=== PATIENT | male | born 1975 | race Caucasian/White ===

== ENCOUNTER 2018-10-31 02:37 | Emergency (ER) | payer SELFPAY ==
[2018-10-31 02:45] VITALS: BP 131/95; PULSE 98; RESP 22; TEMP 36.8; O2SAT 100; BMI 22.1
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
[2018-10-31 04:01] VITALS: BP 108/74; PULSE 95; RESP 19; O2SAT 98
== END 2018-10-31 04:03 | disposition home or self-care (01) ==
PROVIDERS: Emergency Provider Emergency Medicine
DX: M25.521 Pain in right elbow (principal); M54.2 Cervicalgia; R07.81 Pleurodynia; M25.551 Pain in right hip; Y30.XXXA Falling, jumping or pushed from a high place, undetermined intent, initial encounter; Y09 Assault by unspecified means
CPT/HCPCS: 70450; 72125; 73080; 99283; 99284

== ENCOUNTER 2021-06-21 10:49 | Emergency (ER) | payer OTHER, MEDICAID, SELFPAY ==
[2021-06-21 10:51] VITALS: BP 142/90; PULSE 103; RESP 18; TEMP 38.8; O2SAT 99; BMI 25.8
--- NOTE | 2021-06-21 11:09 | DI.RAD.S_ITS ---
1PROCEDURE: XR CHEST 1V INDICATIONS: chest pain, rash, +covid TECHNIQUE: One view of the chest was acquired. COMPARISON: [facility], , CHEST 2 VIEW, 05/22/2009, 15:57. FINDINGS: Surgical changes and devices: None. Lungs and pleura: Lungs are clear. No pleural effusions or pneumothorax. Mediastinum: Mediastinal contours appear normal. Heart size is normal. Bones and chest wall: No suspicious bony lesions. Overlying soft tissues appear unremarkable. IMPRESSION: Unremarkable portable chest, without infiltrates. Dictated by: Braulio Cuellar M.D. on 06/21/2021 at 10:34 Approved by: Braulio Cuellar M.D. on 06/21/2021 at 10:35
[2021-06-21] MEDS: ACETAMINOPHEN 325 MG TABLET 975 MG PO (11:15)
[2021-06-21] MEDS: IBUPROFEN 400 MG TABLET 800 MG PO (11:15)
[2021-06-21] MEDS: hydrOXYzine pamoate 25 MG CAPSULE PO (12:50)
[2021-06-21 12:52] LABS: Add Manual Diff / Slide Review NO; Basophils Absolute Auto 100 /uL (0-100); Basophils Percent Auto 1.2 % (0-2); Eosinophils Absolute Auto 100 /uL (0-450); Eosinophils Percent Auto 1.8 % (2-4); Hematocrit 52.3 % (41-53); Hemoglobin 18.1 g/dL (13.5-17.5); Lymphocytes Absolute Auto 1700 /uL (1100-4500); Lymphocytes Percent Auto 26.5 % (25-40); Mean Corpuscular HGB Conc 34.6 % (30-36); Mean Corpuscular Hemoglobin 32.7 PG (26-34); Mean Corpuscular Volume 94.4 fL (80-100); Monocytes Absolute Auto 600 /uL (0-900); Monocytes Percent Auto 8.6 % (3-14); Neutrophils Absolute Auto 4000 /uL (1500-7000); Neutrophils Percent Auto 61.9 % (50-75); Platelet Count 193 X10^3/uL (150-400); Red Blood Cell Count 5.54 X10^6/uL (4.5-5.9); Red Cell Distribution Width 13.2 % (11.6-14.8); White Blood Cell Count 6.4 X10^3/uL (4.5-11.0)
--- NOTE | 2021-06-21 12:59 | ED_ITS ---
HPI - URI/Sore Throat <CLAU Gomez - Last Filed: 06/21/21 15:56> General Chief Complaint: Upper Respiratory Symptoms Stated Complaint: Covid, rash, chest pain Time Seen by Provider: 06/21/21 11:08 History of Present Illness HPI Narrative: 45-year-old male presents to the emergency department complaining of COVID infection x3 weeks, fever, fatigue, and non-pruritic rash on his chest when he has a fever. Patient states that he tested positive for COVID on Wednesday again and has had a fever since then. Patient states that he tested positive over 3 weeks ago and his symptoms improved after week and a half for a few days and then he feels like he got sick again and then tested positive for COVID Wednesday. Patient denies any wheezing, shortness of breath, chest pain or dizziness. Patient endorses fatigue, cough, malaise, denies taking any medications at home, he has a rash on his chest which is non petechial, not raised, is associated with fever, does not have any adverse sensation or and is not bothersome. Patient states that he put a steroid cream on it for a few days and then it became tender and he did not want to do that anymore. Related Data Previous Rx's Medication Instructions Recorded famotidine 20 mg tablet (Pepcid) 20 mg PO DAILY #20 tab 06/21/21 hydroxyzine HCl 25 mg tablet 25 mg PO BID PRN #20 tab 06/21/21 prednisone 20 mg tablet 40 mg PO DAILY 4 Days #8 tab 06/21/21 Allergies Allergy/AdvReac Type Severity Reaction Status Date / Time Penicillins Allergy Verified 10/31/18 03:36 Review of Systems <CLAU Gomez - Last Filed: 06/21/21 15:56> Review of Systems Narrative: General: endorses fever and chills, malaise, and fatigue Head/Neck: denies headache, neck pain, dizziness Eyes: denies visual changes, eye pain Cardio: denies chest pain, palpitations, edema Respiratory: denies dyspnea, endorses cough but is improving GI: denies abdominal pain, nausea, vomiting, or diarrhea : denies dysuria, hematuria, urinary retention, frequency or incontinence MSK: denies joint pain, muscle weakness Skin: Endorses nonpruritic rash on chest, denies itching, skin lesions or other Neuro: denies numbness, tingling Patient History <CLAU Gomez - Last Filed: 06/21/21 15:56> Surgical History No pertinent past surgical history Social History lives independently: Yes Smoking Status: Current every day smoker Smoking Status: Current every day smoker alcohol intake frequency: 0-2 drinks per day Substance Use Type: marijuana Exam <CLAU Gomez - Last Filed: 06/21/21 15:56> Narrative Exam Narrative: Independently reviewed vitals signs and nursing notes. General: Cooperative, comfortable, in no acute distress, well developed and well groomed Head/Neck: Normal visual inspection and supple, atraumatic, no JVD or lymphadenopathy. Normal facial exam Eyes: Pupils equal round and reactive, EOMI, conjunctiva normal, no scleral icterus or injections Nose: External nose normal, nares patent, no rhinorrhea, without purulent drainage Mouth/Throat: uvula midline, moist mucus membranes Cardio: Regular rate and rhythm, no peripheral edema, warm extremities Respiratory: Normal respiratory effort, able to speak in complete sentences without audible wheezing, stridor, or rales. No retractions. GI: Abdomen soft, nontender to palpation x4 quadrants, nondistended, no masses or exquisite tenderness with exam, no flank tenderness MSK: Moves all extremities, neurovascularly intact Skin: Normal capillary refill, no rash Neuro: Normal speech and cognition, normal gait, A&O x3, tone normal, moves all extremities Psych: Mental status is grossly normal, speech is clear, congruent mood, normal affect Initial Vital Signs Initial Vital Signs: Vital Signs Temperature 102 F H 06/21/21 10:51 Pulse Rate 103 H 06/21/21 10:51 Respiratory Rate 18 06/21/21 10:51 Blood Pressure 142/90 H 06/21/21 10:51 Pulse Oximetry 99 06/21/21 10:51 <Armida Ordaz DO - Last Filed: 06/21/21 19:00> Initial Vital Signs Initial Vital Signs: Vital Signs Temperature 102 F H 06/21/21 10:51 Pulse Rate 103 H 06/21/21 10:51 Respiratory Rate 18 06/21/21 10:51 Blood Pressure 142/90 H 06/21/21 10:51 Pulse Oximetry 99 06/21/21 10:51 Course <CLAU Gomez - Last Filed: 06/21/21 15:56> Orders Ordered: ED Orders 06/21/21 11:00 COVID19 -Nasal swab/Pre-Proc Stat 06/21/21 11:09 Chest [XR chest 1V] Stat 06/21/21 12:43 CBC Auto Diff [Complete Blood Count AUTO DIFF] Stat CMP [Comprehensive Metabolic Panel] Stat Troponin & CK Cardiac Panel Stat Discontinued Medications Acetaminophen (Acetaminophen 325 Mg Tablet) 975 mg PO NOW ONE Stop: 06/21/21 11:10 Last Admin: 06/21/21 11:15 Dose: 975 mg Documented by: MELANIA Erythromycin (Erythromycin Ophth 1 Gm Oint) 1 applic EYE-RIGHT NOW ONE Stop: 06/21/21 13:02 Last Admin: 06/21/21 13:14 Dose: Not Given Documented by: TYLER Famotidine (Famotidine 20 Mg Tablet) 20 mg PO NOW ONE Stop: 06/21/21 13:35 Last Admin: 06/21/21 13:42 Dose: 20 mg Documented by: MELANIA Hydroxyzine Pamoate (Hydroxyzine Pamoate 25 Mg Capsule) 25 mg PO NOW ONE Stop: 06/21/21 12:22 Last Admin: 06/21/21 12:50 Dose: 25 mg Documented by: MELANIA Ibuprofen (Ibuprofen 400 Mg Tablet) 800 mg PO NOW ONE Stop: 06/21/21 11:10 Last Admin: 06/21/21 11:15 Dose: 800 mg Documented by: MELANIA Prednisone (Prednisone 20 Mg Tablet) 40 mg PO NOW ONE Stop: 06/21/21 13:34 Last Admin: 06/21/21 13:42 Dose: 40 mg Documented by: MELANIA Vital Signs Vital signs: Vital Signs - 8 hr 06/21/21 13:27 06/21/21 14:22 Pulse Rate 74 74 Respiratory Rate 18 17 Blood Pressure 130/76 128/79 Pulse Oximetry 94 95 <Armida Ordaz DO - Last Filed: 06/21/21 19:00> Orders Ordered: ED Orders 06/21/21 11:00 COVID19 -Nasal swab/Pre-Proc Stat 06/21/21 11:09 Chest [XR chest 1V] Stat 06/21/21 12:43 CBC Auto Diff [Complete Blood Count AUTO DIFF] Stat CMP [Comprehensive Metabolic Panel] Stat Troponin & CK Cardiac Panel Stat Discontinued Medications Acetaminophen (Acetaminophen 325 Mg Tablet) 975 mg PO NOW ONE Stop: 06/21/21 11:10 Last Admin: 06/21/21 11:15 Dose: 975 mg Documented by: MELANIA Erythromycin (Erythromycin Ophth 1 Gm Oint) 1 applic EYE-RIGHT NOW ONE Stop: 06/21/21 13:02 Last Admin: 06/21/21 13:14 Dose: Not Given Documented by: TYLER Famotidine (Famotidine 20 Mg Tablet) 20 mg PO NOW ONE Stop: 06/21/21 13:35 Last Admin: 06/21/21 13:42 Dose: 20 mg Documented by: MELANIA Hydroxyzine Pamoate (Hydroxyzine Pamoate 25 Mg Capsule) 25 mg PO NOW ONE Stop: 06/21/21 12:22 Last Admin: 06/21/21 12:50 Dose: 25 mg Documented by: MELANIA Ibuprofen (Ibuprofen 400 Mg Tablet) 800 mg PO NOW ONE Stop: 06/21/21 11:10 Last Admin: 06/21/21 11:15 Dose: 800 mg Documented by: MELANIA Prednisone (Prednisone 20 Mg Tablet) 40 mg PO NOW ONE Stop: 06/21/21 13:34 Last Admin: 06/21/21 13:42 Dose: 40 mg Documented by: MELANIA Vital Signs Vital signs: Vital Signs - 8 hr 06/21/21 13:27 06/21/21 14:22 Pulse Rate 74 74 Respiratory Rate 18 17 Blood Pressure 130/76 128/79 Pulse Oximetry 94 95 MDM - URI/Sore Throat <CLAU Gomez - Last Filed: 06/21/21 15:56> Lab Data Result diagrams: 06/21/21 12:43 06/21/21 12:43 Labs: Lab Results 06/21/21 06/21/21 06/21/21 Range/Units 11:00 12:43 12:43 WBC 6.4 (4.5-11.0) X10^3/uL RBC 5.54 (4.5-5.9) X10^6/uL Hgb 18.1 H (13.5-17.5) g/dL Hct 52.3 (41-53) % MCV 94.4 (80-100) fL MCH 32.7 (26-34) PG MCHC 34.6 (30-36) % RDW 13.2 (11.6-14.8) % Plt Count 193 (150-400) X10^3/uL Neut % (Auto) 61.9 (50-75) % Lymph % (Auto) 26.5 (25-40) % [place] % (Auto) 8.6 (3-14) % Eos % (Auto) 1.8 L (2-4) % Baso % (Auto) 1.2 (0-2) % Neut # (Auto) 4000 (4054-8516) /uL Lymph # (Auto) 1700 (8359-6174) /uL [place] # (Auto) 600 (0-900) /uL Eos # (Auto) 100 (0-450) /uL Baso # (Auto) 100 (0-100) /uL Sodium 137 (137-145) mmol/L Potassium 4.8 (3.4-5.1) mmol/L Chloride 103 (98-107) mmol/L Carbon Dioxide 31 (22-32) mmol/L BUN 8 L (9-20) mg/dL Creatinine 0.72 (0.66-1.25) mg/dL Estimated GFR > 60.0 (>60) mL/min BUN/Creatinine Ratio 11.1 (6-22) Glucose 94 (70-100) mg/dL Calcium 9.4 (8.4-10.2) mg/dL Total Bilirubin 1.2 (0.2-1.3) mg/dL AST 35 (17-59) IU/L ALT 33 (<50) IU/L Alkaline Phosphatase 60 (38-126) U/L Total Creatine Kinase 89 (55-170) U/L CK-MB (CK-2) TNP CK-MB (CK-2) Rel Index TNP Troponin I < 0.012 (0.01-0.034) ng/mL Total Protein 8.1 (6.3-8.2) g/dL Albumin 4.7 (3.5-5.0) g/dL Globulin 3.4 (1.7-4.1) g/dL Albumin/Globulin Ratio 1.4 (1.0-2.8) SARS-CoV-2 (PCR) Negative (Negative) MDM Narrative Medical decision making narrative: 45-year-old male presents to the emergency department today for upper respiratory symptoms, active COVID infection for the last 3 weeks, fever, malaise, and a rash associated with fever on his chest. Today patient tested negative for COVID after tested positive by days ago. Patient is afebrile currently, chest x-ray without any pulmonary infiltrate or acute cardiopulmonary abnormality. Lab work without any elevation in troponin, patient mildly hemoconcentrated without any leukocytosis, electrolyte abnormalities, or signs of infection. Patient was given 1 L of water and drink this without any nausea or vomiting. His rash on his chest is not petechial, it is not raised, it is nonpruritic, is nonpainful, could be associated with fever. Today patient recei finn ibuprofen, famotidine hydroxyzine, and prednisone for his symptoms. Was instructed to stay hydrated, eat a healthy diet, decrease smoking, and follow-up with his primary care provider. Patient has an upcoming appointment to establish care with a primary care provider in 3 days, he states he will follow- up accordingly and then he will have all of his labs checked as well. Multiple causes of chest pain considered including PA, PE, pneumothorax, pneumonia, aortic dissection, and pleurisy. Patient reports no radiation, no diaphoresis, no provocation with exertion, and no vomiting. Patient is appropriate and amenable to discharge home. Vital signs are stable on repeat examination is unremarkable. Patient has been informed of results. Patient has been given strict return to ER precautions for any new or worsening symptoms. Patient understands to follow up closely with outpatient providers as instructed. Patient understands plan and agrees to discharge home. All questions and co ncerns answered at this time. <Armida Ordaz, DO - Last Filed: 06/21/21 19:00> Lab Data Labs: Lab Results 06/21/21 06/21/21 06/21/21 Range/Units 11:00 12:43 12:43 WBC 6.4 (4.5-11.0) X10^3/uL RBC 5.54 (4.5-5.9) X10^6/uL Hgb 18.1 H (13.5-17.5) g/dL Hct 52.3 (41-53) % MCV 94.4 (80-100) fL MCH 32.7 (26-34) PG MCHC 34.6 (30-36) % RDW 13.2 (11.6-14.8) % Plt Count 193 (150-400) X10^3/uL Neut % (Auto) 61.9 (50-75) % Lymph % (Auto) 26.5 (25-40) % [place] % (Auto) 8.6 (3-14) % Eos % (Auto) 1.8 L (2-4) % Baso % (Auto) 1.2 (0-2) % Neut # (Auto) 4000 (1852-4256) /uL Lymph # (Auto) 1700 (8410-0748) /uL [place] # (Auto) 600 (0-900) /uL Eos # (Auto) 100 (0-450) /uL Baso # (Auto) 100 (0-100) /uL Sodium 137 (137-145) mmol/L Potassium 4.8 (3.4-5.1) mmol/L Chloride 103 (98-107) mmol/L Carbon Dioxide 31 (22-32) mmol/L BUN 8 L (9-20) mg/dL Creatinine 0.72 (0.66-1.25) mg/dL Estimated GFR > 60.0 (>60) mL/min BUN/Creatinine Ratio 11.1 (6-22) Glucose 94 (70-100) mg/dL Calcium 9.4 (8.4-10.2) mg/dL Total Bilirubin 1.2 (0.2-1.3) mg/dL AST 35 (17-59) IU/L ALT 33 (<50) IU/L Alkaline Phosphatase 60 (38-126) U/L Total Creatine Kinase 89 (55-170) U/L CK-MB (CK-2) TNP CK-MB (CK-2) Rel Index TNP Troponin I < 0.012 (0.01-0.034) ng/mL Total Protein 8.1 (6.3-8.2) g/dL Albumin 4.7 (3.5-5.0) g/dL Globulin 3.4 (1.7-4.1) g/dL Albumin/Globulin Ratio 1.4 (1.0-2.8) SARS-CoV-2 (PCR) Negative (Negative) Discharge Plan Departure Patient Disposition: Home Clinical Impression: Rash Upper respiratory infection Qualifiers: URI type: unspecified URI Qualified Code(s): J06.9 - Acute upper respiratory infection, unspecified Fever Qualifiers: Fever type: unspecified Qualified Code(s): R50.9 - Fever, unspecified Instructions: DI for Rash, DI for Fever (Symptom) -- Adult Activity Restrictions/Additional Instructions: *You have been diagnosed with negative COVID test, congratulations, finally! That is a good sign that things are moving in the right direction. COVID can cause a rash like you have today, and fever can cause a rash like you have today so I think they are both related. Treat the fever and the rash will likely go down. Would like to give you a short course of steroids so that you can start to get better soon. Please stay hydrated, drink plenty of water. He appeared slightly dehydrated today on her lab work. Your cardiac workup is all in the clear, does not look like you have any organ dysfunction. Hope you start feeling better soon, please cigar packer and picker her prescriptions at [facility] in [place]. Follow-up with your primary care provider, I will try to send your chart to him. *What to do: *Please continue to take your regular medications as directed. [ x] New medication prescriptions sent to your pharmacy: [ [facility]] [ ] New medication written as a paper prescription [ ] No new medications given *Please follow up with your primary care provider in 2-3 days, call for an appointment. Let them know you were seen in the Emergency Department and that we ask that you be seen in follow up. We will electronically transmit a record of today's note if your PCP is in our system *If you do not have a primary care provider please contact the [facility] Resource line at [phone]. They will ask some questions about your medical history and help get you set up with a doctor in the community. *Return to Emergency Department if you should have any new, worsening or concerning symptoms, such as [fever greater than 101F, chills, worsening pain, persistent vomiting or other bothersome symptoms] Prescriptions: New prednisone 20 mg tablet 40 mg PO DAILY 4 Days Qty: 8 0RF famotidine [Pepcid] 20 mg tablet 20 mg PO DAILY Qty: 20 0RF hydroxyzine HCl 25 mg tablet 25 mg PO BID PRN (Reason: itching) Qty: 20 0RF <Armida Ordaz DO - Last Filed: 06/21/21 19:00> Cosign ED Attending Cosignature Attestation: I was immediately available in the department for consultation. Documentation has been reviewed.
[2021-06-21 13:05] LABS: Alanine Aminotransferase 33 IU/L (<50); Albumin 4.7 g/dL (3.5-5.0); Albumin Globulin Ratio 1.4 (1.0-2.8); Alkaline Phosphatase 60 U/L (38-126); Aspartate Aminotransferase 35 IU/L (17-59); BUN Creatinine Ratio 11.1 (6-22); Bilirubin Total 1.2 mg/dL (0.2-1.3); Blood Urea Nitrogen 8 mg/dL (9-20); Calcium 9.4 mg/dL (8.4-10.2); Carbon Dioxide 31 mmol/L (22-32); Chloride 103 mmol/L (98-107); Creatine Kinase 89 U/L (55-170); Estimated Glomerular Filt Rate > 60.0 mL/min (>60); Globulin 3.4 g/dL (1.7-4.1); Glucose 94 mg/dL (70-100); HEMOLYSIS 46 (0-50); Potassium 4.8 mmol/L (3.4-5.1); Sodium 137 mmol/L (137-145); Total Protein 8.1 g/dL (6.3-8.2)
[2021-06-21 13:16] LABS: Troponin I < 0.012 ng/mL (0.01-0.034)
[2021-06-21 13:26] LABS: COVID19 -Nasal RAPID Negative (Negative)
[2021-06-21 13:27] VITALS: BP 130/76; PULSE 74; RESP 18; O2SAT 94
[2021-06-21] MEDS: FAMOTIDINE 20 MG TABLET PO (13:42)
[2021-06-21] MEDS: predniSONE 20 MG TABLET 40 MG PO (13:42)
[2021-06-21 14:22] VITALS: BP 128/79; PULSE 74; RESP 17; O2SAT 95
== END 2021-06-21 14:30 | disposition home or self-care (01) ==
PROVIDERS: Emergency Medicine; Emergency Provider Nurse Practitioner Critical Care Medicine
DX: J06.9 Acute upper respiratory infection, unspecified (principal); R21 Rash and other nonspecific skin eruption; R07.9 Chest pain, unspecified; F17.200 Nicotine dependence, unspecified, uncomplicated; Z20.822 Contact with and (suspected) exposure to COVID-19
CPT/HCPCS: 71045; 80053; 82550; 84484; 85025; 87635; 93005; 93010; 99283; 99284; C9803; A9270

== ENCOUNTER 2021-11-23 21:02 | Emergency (ER) | payer OTHER, MEDICAID, SELFPAY ==
[2021-11-23] VITALS (8 sets, daily range): BP systolic 105–134; BP diastolic 56–82; PULSE 87–96; RESP 14–24; TEMP 37.2; O2SAT 93–100
--- NOTE | 2021-11-23 21:11 | ED_ITS ---
HPI - Chest Pain General Chief Complaint: Chest Pain Stated Complaint: CHEST PAIN, Left arm numb, Time Seen by Provider: 11/23/21 21:09 History of Present Illness HPI narrative: 46-year-old male daily smoker without any significant chronic medical history though longstanding issues with neck pain and prior traumas resulting in chest injury presents with his significant other and a chief complaint of a brief episode of sharp and stabbing left anterior chest and left side neck pain ear lier in the day that has since resolved and now tingling and pain in his left arm. He states that motion of his arm increases the pain. He denies any overuse or specific traumatic injury though he did suffer a small superficial abrasion or laceration on the thenar eminence of his left hand yesterday. He is had no fever or chills. He is not dizzy nor weak or lightheaded. He denies any exertional dyspnea or fatigue. He denies any chest pressure, squeezing or heaviness. He denies any recent travel, cough with hemoptysis or history of cancer or clot. Related Data Previous Rx's Medication Instructions Recorded famotidine 20 mg tablet (Pepcid) 20 mg PO DAILY ulcer prevention 06/21/21 #20 tabs hydroxyzine HCl 25 mg tablet 25 mg PO BID PRN itching #20 tabs 06/21/21 doxycycline hyclate 100 mg tablet 100 mg PO BID #20 tabs 11/23/21 gabapentin 300 mg capsule 300 mg PO BEDTIME #14 caps 11/23/21 ketorolac 10 mg tablet 10 mg PO Q6H PRN pain #14 tabs 11/23/21 methylprednisolone 4 mg tablets in See Rx Instructions PO .COMPLEX 11/23/21 a dose pack (Medrol ([place])) #21 ea Allergies Allergy/AdvReac Type Severity Reaction Status Date / Time Penicillins Allergy Verified 10/31/18 03:36 Review of Systems Review of Systems Narrative: GENERAL: Denies chills, fatigue, malaise, fever, sweats. HEENT: Denies sinus pain, ear pain, sore throat, difficulty swallowing, dizziness. RESPIRATORY: Denies dyspnea, cough, wheezing, hemoptysis, sputum. CARDIOVASCULAR: See HPI GASTROINTESTINAL: Denies nausea, vomiting, abdominal pain, diarrhea, constipation, melena. : Denies dysuria, frequency, incontinence, hematuria, urinary retention. MUSCULOSKELETAL: See HPI SKIN: Denies rash, skin lesions, or other NEUROLOGIC: See HPI PSYCHIATRIC: No concerning psychosocial issues. 12 point review of systems is negative except for those stated above Patient History Surgical History No pertinent past surgical history Social History lives independently: Yes Smoking Status: Current every day smoker Smoking Status: Current every day smoker alcohol intake frequency: 0-2 drinks per day Substance Use Type: marijuana Exam Narrative Exam Narrative: GENERAL: [46] year old patient appears stated age. Well-developed patient, in mild distress. HEAD: Atraumatic. Normocephalic. EYES: Pupils equal round and reactive. Extraocular motions intact. No scleral icterus. No injection or drainage. ENT: Nose without bleeding, purulent drainage. Throat without erythema, tonsillar hypertrophy or exudate. Airway patent. NECK: Trachea midline. Mild left side paraspinal tenderness, no change with axial load, patient has full apparently pain-free range of motion of the neck, no obvious deformity, step-offs or crepitance CARDIOVASCULAR: Regular rate and rhythm without murmurs, gallops, or rubs. No anterior chest pain on palpation RESPIRATORY: Clear to auscultation. Breath sounds equal bilaterally. No wheezes, rales, or rhonchi. GASTROINTESTINAL: Abdomen soft, non-tender, nondistended. EXTREMITIES: No obvious external manifestation of injury or abnormality and left arm, no pain on palpation of left shoulder, elbow or wrist, no swelling, erythema, warmth nor fluctuation or induration. Use of arm exacerbates pain, patient has some tingling in his fingers on occasion, cap refill and radial pulse intact BACK: Nontender without deformity or crepitance. No flank tenderness. NEURO: AOx3. SKIN: No rash or erythema of visible areas Initial Vital Signs Initial Vital Signs: Vital Signs Pulse Rate 96 H 11/23/21 21:08 Respiratory Rate 18 11/23/21 21:08 Scores HEART Score Heart Score history: Slightly Suspicious Heart Score EKG: Non-Specific repolarization disturbance Heart Score Age: < 45 years old Heart Score risk factors: No known risk factors Heart Score troponin: < or = to normal limit Heart Score Total: 1 Course Orders Ordered: ED Orders 11/23/21 21:11 XR chest 1V Stat EKG-12 Lead Stat 11/23/21 21:17 CRP [C-Reactive Protein Quant] Stat Complete Blood Count AUTO DIFF Stat Comprehensive Metabolic Panel Stat D Dimer Stat ESR [Erythrocyte Sedimentation Rate] Stat Lipase Stat Magnesium Stat Troponin & CK Cardiac Panel Stat Discontinued Medications Dexamethasone (Dexamethasone 10 Mg/Ml Vial) 10 mg IV NOW ONE Stop: 11/23/21 21:27 Last Admin: 11/23/21 21:36 Dose: 10 mg Documented By: BS Diphtheria/Tetanus/Acell Pertussis (Tet,Diph,Pertuss(Acell),Vac/Pf 0.5 Ml Syringe) 0.5 ml IM .ONCE ONE Stop: 11/23/21 22:13 Last Admin: 11/23/21 22:49 Dose: 0.5 ml Documented By: DENIZ Gabapentin (Gabapentin 300 Mg Capsule) 300 mg PO NOW ONE Stop: 11/23/21 21:27 Last Admin: 11/23/21 21:36 Dose: 300 mg Documented By: RODY Ketorolac Tromethamine (Ketorolac 30 Mg/Ml Vial) 15 mg IV NOW ONE Stop: 11/23/21 21:27 Last Admin: 11/23/21 21:36 Dose: 15 mg Documented By: RODY Vital Signs Vital signs: Vital Signs - 8 hr 11/23/21 21:11 11/23/21 21:30 11/23/21 21:36 Temperature 98.9 F Pulse Rate 92 H 91 H Respiratory Rate 18 15 Blood Pressure 134/76 129/67 Pulse Oximetry 100 94 Oxygen Delivery Method Room Air 11/23/21 21:36 11/23/21 22:00 11/23/21 22:00 Temperature Pulse Rate 92 H 92 H Respiratory Rate 21 14 Blood Pressure 127/56 L Pulse Oximetry 95 94 Oxygen Delivery Method 11/23/21 22:30 11/23/21 22:30 11/23/21 23:00 Temperature Pulse Rate 87 94 H Respiratory Rate 22 24 Blood Pressure 105/56 L Pulse Oximetry 93 94 Oxygen Delivery Method 11/23/21 23:01 11/23/21 23:01 Temperature Pulse Rate 94 H Respiratory Rate 22 Blood Pressure 125/82 Pulse Oximetry 93 Oxygen Delivery Method MDM - Chest Pain Lab Data Result diagrams: 11/23/21 21:17 11/23/21 21:17 Labs: Lab Results 11/23/21 11/23/21 11/23/21 Range/Units 21:17 21:17 21:17 WBC 9.9 (4.5-11.0) X10^3/uL RBC 4.67 (4.5-5.9) X10^6/uL Hgb 15.6 (13.5-17.5) g/dL Hct 45.2 (41-53) % MCV 96.7 (80-100) fL MCH 33.4 (26-34) PG MCHC 34.5 (30-36) % RDW 13.2 (11.6-14.8) % Plt Count 186 (150-400) X10^3/uL Neut % (Auto) 50.2 (50-75) % Lymph % (Auto) 37.4 (25-40) % [place] % (Auto) 8.4 (3-14) % Eos % (Auto) 3.1 (2-4) % Baso % (Auto) 0.9 (0-2) % Neut # (Auto) 5000 (5569-1841) /uL Lymph # (Auto) 3700 (7597-2030) /uL [place] # (Auto) 800 (0-900) /uL Eos # (Auto) 300 (0-450) /uL Baso # (Auto) 100 (0-100) /uL ESR 1 (0-15) MM/HR D-Dimer (<230) ng/mL Sodium 141 (137-145) mmol/L Potassium 4.3 (3.4-5.1) mmol/L Chloride 108 H (98-107) mmol/L Carbon Dioxide 21 L (22-32) mmol/L BUN 14 (9-20) mg/dL Creatinine 0.77 (0.66-1.25) mg/dL Estimated GFR > 60 (>60) mL/min BUN/Creatinine Ratio 18.2 (6-22) Glucose 82 (70-100) mg/dL Calcium 8.5 (8.4-10.2) mg/dL Magnesium 2.4 H (1.6-2.3) mg/dL Total Bilirubin 0.3 (0.2-1.3) mg/dL AST 52 (17-59) IU/L ALT 54 H (<50) IU/L Alkaline Phosphatase 41 (38-126) U/L Total Creatine Kinase 294 H (55-170) U/L CK-MB (CK-2) 1.50 (<2.37) ng/mL CK-MB (CK-2) Rel Index 0.5 L (1.5-5.0) % Troponin I < 0.012 (0.01-0.034) ng/mL C-Reactive Protein (<1.0) mg/dL Total Protein 7.4 (6.3-8.2) g/dL Albumin 4.6 (3.5-5.0) g/dL Globulin 2.8 (1.7-4.1) g/dL Albumin/Globulin Ratio 1.6 (1.0-2.8) Lipase 234 (23-300) U/L 11/23/21 11/23/21 Range/Units 21:17 21:17 WBC (4.5-11.0) X10^3/uL RBC (4.5-5.9) X10^6/uL Hgb (13.5-17.5) g/dL Hct (41-53) % MCV (80-100) fL MCH (26-34) PG MCHC (30-36) % RDW (11.6-14.8) % Plt Count (150-400) X10^3/uL Neut % (Auto) (50-75) % Lymph % (Auto) (25-40) % [place] % (Auto) (3-14) % Eos % (Auto) (2-4) % Baso % (Auto) (0-2) % Neut # (Auto) (5709-7696) /uL Lymph # (Auto) (0301-7464) /uL [place] # (Auto) (0-900) /uL Eos # (Auto) (0-450) /uL Baso # (Auto) (0-100) /uL ESR (0-15) MM/HR D-Dimer < 200 (<230) ng/mL Sodium (137-145) mmol/L Potassium (3.4-5.1) mmol/L Chloride (98-107) mmol/L Carbon Dioxide (22-32) mmol/L BUN (9-20) mg/dL Creatinine (0.66-1.25) mg/dL Estimated GFR (>60) mL/min BUN/Creatinine Ratio (6-22) Glucose (70-100) mg/dL Calcium (8.4-10.2) mg/dL Magnesium (1.6-2.3) mg/dL Total Bilirubin (0.2-1.3) mg/dL AST (17-59) IU/L ALT (<50) IU/L Alkaline Phosphatase (38-126) U/L Total Creatine Kinase (55-170) U/L CK-MB (CK-2) (<2.37) ng/mL CK-MB (CK-2) Rel Index (1.5-5.0) % Troponin I (0.01-0.034) ng/mL C-Reactive Protein < 0.5 (<1.0) mg/dL Total Protein (6.3-8.2) g/dL Albumin (3.5-5.0) g/dL Globulin (1.7-4.1) g/dL Albumin/Globulin Ratio (1.0-2.8) Lipase (23-300) U/L Imaging Data Chest x-ray: Radiologist's Impression: [address] [address] XRay Report Signed Patient: Matt Eden MR#: [id number] : 1975 Acct:[id number] Age/Sex: 46 / M Date of Service: 11/23/21 Loc: ED Accession Number: [id number] ?? Procedure: XR chest 1V Ordering Provider: Wisam Perez D.O. PROCEDURE:? XR CHEST 1V ? INDICATIONS:? chest pain ? TECHNIQUE:? One view of the chest was acquired.? ? COMPARISON:? [facility], , XR CHEST 1V, 06/21/2021, 11:19. ? FINDINGS:? ? Surgical changes and devices:? None.? ? Lungs and pleura:? Lungs are clear.? No pleural effusions or pneumothorax.? ? Mediastinum:? Mediastinal contours appear normal.? Heart size is normal.? ? Bones and chest wall:? No suspicious bony lesions.? Overlying soft tissues appear unremarkable.? ? IMPRESSION:? No acute cardiopulmonary pathology. ? ? Dictated by: Phu Pearson M.D. on 11/23/2021 at 21:41 ? ? Approved by: Phu Pearson M.D. on 11/23/2021 at 21:42 ? MDM Narrative Medical decision making narrative: Multiple etiologies for patient's symptoms considered including: [Cervical radiculopathy given left-sided neck pain, history of neck problems, pain radiating into left arm with occasional tingling. Multiple causes of chest pain considered including IN, PE, pneumothorax, pneumonia, aortic dissection, and pleurisy. Patient reports no radiation, no diaphoresis, no provocation with exertion, and no vomiting. EKG non ischemic, troponin negative, D-dimer negative (CT angiogram not indicated)] Patient's symptoms improved over duration of stay with above-stated therapies. Findings and discharge diagnosis discussed with patient/family followed by verbalization of understanding Return precautions discussed with patient/family whom verbalize understanding. Discharge Plan Departure Patient Disposition: Home Clinical Impression: Arm pain, left, Chest pain, atypical Instructions: DI for Atypical Chest Pain, DI for Neck Pain Activity Restrictions/Additional Instructions: *You have been diagnosed with [atypical chest pain which is very unlikely to be related to heart attack, blood clot, pericarditis or other significant diagnosis. Additionally left-sided neck pain and arm pain which is likely due to radiculopathy] *What to do: *Please continue to take your regular medications as directed. [x ] New medication prescriptions sent to your pharmacy: [[facility] ] [ ] New medication written as a paper prescription [ ] No new medications given *Please follow up with your primary care provider in 2-3 days, call for an appointment. Let them know you were seen in the Emergency Department and that we ask that you be seen in follow up. We will electronically transmit a record of today's note if your PCP is in our system *If you do not have a primary care provider please contact the [facility] Resource line at [phone]. They will ask some questions about your medical history and help get you set up with a doctor in the community. *Return to Emergency Department if you should have any new, worsening or concerning symptoms, such as [fever greater than 101 F, shaking chills, worsening pain, persistent vomiting or other bothersome symptoms] Prescriptions: New ketorolac 10 mg tablet 10 mg PO Q6H PRN (Reason: pain) Qty: 14 0RF gabapentin 300 mg capsule 300 mg PO BEDTIME Qty: 14 0RF methylprednisolone [Medrol ([place])] 4 mg tablets,dose pack See Rx Instructions .ROUTE .COMPLEX Qty: 21 0RF Rx Instructions: orally per package directions doxycycline hyclate 100 mg tablet 100 mg PO BID Qty: 20 0RF No Action famotidine [Pepcid] 20 mg tablet 20 mg PO DAILY Qty: 20 0RF hydroxyzine HCl 25 mg tablet 25 mg PO BID PRN (Reason: itching) Qty: 20 0RF Referrals: Miscellaneous,Doctor, MD [Primary Care Provider] - Stand Alone Forms: Work Release Note Visit Report Forms: Patient Portal/API
--- NOTE | 2021-11-23 21:11 | DI.RAD.S_ITS ---
PROCEDURE: XR CHEST 1V INDICATIONS: chest pain TECHNIQUE: One view of the chest was acquired. COMPARISON: [facility], CR, XR CHEST 1V, 06/21/2021, 11:19. FINDINGS: Surgical changes and devices: None. Lungs and pleura: Lungs are clear. No pleural effusions or pneumothorax. Mediastinum: Mediastinal contours appear normal. Heart size is normal. Bones and chest wall: No suspicious bony lesions. Overlying soft tissues appear unremarkable. IMPRESSION: No acute cardiopulmonary pathology. Dictated by: Phu Pearson M.D. on 11/23/2021 at 21:41 Approved by: Phu Pearson M.D. on 11/23/2021 at 21:42
[2021-11-23 21:33] LABS: Add Manual Diff / Slide Review NO; Basophils Absolute Auto 100 /uL (0-100); Basophils Percent Auto 0.9 % (0-2); Eosinophils Absolute Auto 300 /uL (0-450); Eosinophils Percent Auto 3.1 % (2-4); Hematocrit 45.2 % (41-53); Hemoglobin 15.6 g/dL (13.5-17.5); Lymphocytes Absolute Auto 3700 /uL (1100-4500); Lymphocytes Percent Auto 37.4 % (25-40); Mean Corpuscular HGB Conc 34.5 % (30-36); Mean Corpuscular Hemoglobin 33.4 PG (26-34); Mean Corpuscular Volume 96.7 fL (80-100); Monocytes Absolute Auto 800 /uL (0-900); Monocytes Percent Auto 8.4 % (3-14); Neutrophils Absolute Auto 5000 /uL (1500-7000); Neutrophils Percent Auto 50.2 % (50-75); Platelet Count 186 X10^3/uL (150-400); Red Blood Cell Count 4.67 X10^6/uL (4.5-5.9); Red Cell Distribution Width 13.2 % (11.6-14.8); White Blood Cell Count 9.9 X10^3/uL (4.5-11.0)
[2021-11-23] MEDS: GABAPENTIN 300 MG CAPSULE PO (21:36)
[2021-11-23] MEDS: KETOROLAC 30 MG/ML VIAL 15 MG IV (21:36)
[2021-11-23] MEDS: DEXAMETHASONE 10 MG/ML VIAL IV (21:36)
[2021-11-23 21:43] LABS: Alanine Aminotransferase 54 IU/L (<50); Albumin 4.6 g/dL (3.5-5.0); Albumin Globulin Ratio 1.6 (1.0-2.8); Alkaline Phosphatase 41 U/L (38-126); Aspartate Aminotransferase 52 IU/L (17-59); BUN Creatinine Ratio 18.2 (6-22); Bilirubin Total 0.3 mg/dL (0.2-1.3); Blood Urea Nitrogen 14 mg/dL (9-20); Calcium 8.5 mg/dL (8.4-10.2); Carbon Dioxide 21 mmol/L (22-32); Chloride 108 mmol/L (98-107); Creatine Kinase 294 U/L (55-170); Estimated Glomerular Filt Rate > 60 mL/min (>60); Globulin 2.8 g/dL (1.7-4.1); Glucose 82 mg/dL (70-100); HEMOLYSIS < 15 (0-50); Lipase 234 U/L (23-300); Magnesium 2.4 mg/dL (1.6-2.3); Potassium 4.3 mmol/L (3.4-5.1); Sodium 141 mmol/L (137-145); Total Protein 7.4 g/dL (6.3-8.2)
[2021-11-23 21:54] LABS: Troponin I < 0.012 ng/mL (0.01-0.034)
[2021-11-23 21:58] LABS: CKMB % Relative Index 0.5 % (1.5-5.0)
[2021-11-23 22:41] LABS: D Dimer < 200 ng/mL (<230)
[2021-11-23] MEDS: TET,DIPH,PERTUSS(ACELL),VAC/PF 0.5 ML SYRINGE IM (22:49)
[2021-11-23 22:50] LABS: Erythrocyte Sedimentation Rate 1 MM/HR (0-15)
[2021-11-23 22:54] LABS: C-Reactive Protein Quant < 0.5 mg/dL (<1.0)
== END 2021-11-23 23:18 | disposition home or self-care (01) ==
PROVIDERS: Emergency Provider Emergency Medicine
DX: R07.89 Other chest pain (principal); M79.602 Pain in left arm; M54.2 Cervicalgia; Z23 Encounter for immunization
CPT/HCPCS: 36415; 71045; 80053; 82550; 82553; 83690; 83735; 84484; 85025; 85379; 85651; 86140; 90471; 93005; 96374; 96375; 99284; 90715; J1100; J1885

== ENCOUNTER → 2021-12-15 16:35 | Outpatient (CLI) | payer OTHER, MEDICAID, SELFPAY ==
--- NOTE | 2021-12-15 16:38 | DI.RAD.S_ITS ---
PROCEDURE: XR CERVICAL SPINE 2V OR 3V INDICATIONS: disc disease or arthritic spur? TECHNIQUE: 3 view(s) of the cervical spine were acquired. COMPARISON: CT, CT CERVICAL SPINE WO CON, 10/31/2018, 3:08. FINDINGS: Bones: No fractures or dislocations to the T1 level. The lateral masses of C1 appear intact on the odontoid view. No suspicious bony lesions. Loss of lordosis which could be related to muscle spasm, rigidity or simply positional. Moderate to severe disc height loss at the C4-C5 level and no [id number] disc height loss at the C5-C6 level. Endplate sclerosis and osteophyte formation is noted. Soft tissues: No prevertebral soft tissue swelling. IMPRESSION: Loss of lordosis and disc degeneration at the C4-C5 and C5-C6 levels. Dictated by: Adonis Mims [facility] Interpreted: Vern Gil MD on 12/16/2021 at 13:36 Transcribed by: FLACA on 12/16/2021 at 13:37 Approved by: Vern Gil M.D. on 12/16/2021 at 14:05
--- NOTE | 2021-12-15 16:38 | DI.RAD.S_ITS ---
PROCEDURE: XR SHOULDER LT MIN 2V INDICATIONS: left shoulder to neck, dec ROM left shoulder, jt changes? TECHNIQUE: 3 views of the shoulder were acquired. COMPARISON: [facility], , SHOULDER MINIMUM 2VIEW RIGHT, 03/30/2013, 23:45. FINDINGS: Bones: No fractures or dislocations. No suspicious bony lesions. Visualized ribs appear intact. Mild joint narrowing with periarticular osteophyte formation of the acromioclavicular and glenohumeral joint. Soft tissues: No suspicious soft tissue calcifications. IMPRESSION: Mild acromioclavicular and glenohumeral joint degeneration. Dictated by: Adonis RIVER Interpreted: Vern Gil MD on 12/16/2021 at 13:37 Transcribed by: FLACA on 12/16/2021 at 13:38 Approved by: Vern Gil M.D. on 12/16/2021 at 14:06
== END ==
PROVIDERS: PCP Pediatrics; Referring Provider Pediatrics; Visit Provider Pediatrics
DX: M50.321 Other cervical disc degeneration at C4-C5 level; M19.012 Primary osteoarthritis, left shoulder; M25.512 Pain in left shoulder; G89.29 Other chronic pain
CPT/HCPCS: 72040; 73030

== ENCOUNTER 2022-02-10 06:14 | Emergency (ER) | payer OTHER, MEDICAID, SELFPAY ==
--- NOTE | 2022-02-10 06:27 | DI.RAD.S_ITS ---
PROCEDURE: XR CHEST 1V INDICATIONS: chest pain TECHNIQUE: One view of the chest was acquired. COMPARISON: [facility], CR, XR CHEST 1V, 06/21/2021, 11:19. [facility], CR, XR CHEST 1V, 11/23/2021, 21:21. FINDINGS: Surgical changes and devices: There is a lead less cardiac monitoring device. Lungs and pleura: Lungs are clear. No pleural effusions or pneumothorax. Mediastinum: Mediastinal contours appear normal. Heart size is normal. Bones and chest wall: No suspicious bony lesions. Overlying soft tissues appear unremarkable. IMPRESSION: No acute cardiopulmonary disease. No significant discrepancy with the third shift lieutenant radiology preliminary report. Dictated by: Sylvia Velasquez M.D. on 02/10/2022 at 8:15 Approved by: Sylvia Velasquez M.D. on 02/10/2022 at 8:16
[2022-02-10 06:32] VITALS: TEMP 36.8; BMI 25.8
[2022-02-10 06:33] VITALS: BP 127/77; PULSE 78; RESP 11; TEMP 36.2; O2SAT 97
[2022-02-10] MEDS: KETOROLAC 30 MG/ML VIAL 15 MG IV (06:38)
--- NOTE | 2022-02-10 06:44 | ED.CHESTPAIN ---
HPI - Chest Pain General Chief Complaint: Extremity Problem,Nontraumatic Stated Complaint: right arm pain, numbness Time Seen by Provider: 02/10/22 06:20 Source: patient Mode of arrival: Ambulatory Limitations: no limitations History of Present Illness HPI narrative: Patient is a 46-year-old male with chronic ongoing neck issues is and palpitations currently with a Zio patch on presenting today with right-sided arm numbness mostly in the ulnar distribution but feels like his arm is ?.It has been ongoing for at least the last 3 days. It is definitely position all is certain positions while driving make his arm numb and weak and playing video games makes it numb and weak. This morning it was just worse. He says it hurts to breathe but is not necessarily short of breath sometimes he does feel short of breath. He sometimes has chest pain. According the records he previously had left-sided neck pain. Related Data Previous Rx's Medication Instructions Recorded cyclobenzaprine 10 mg tablet 10 mg PO TID PRN muscle spasm #30 12/15/21 tabs fluconazole 150 mg tablet 150 mg PO Q3D 2 doses #2 tabs 12/15/21 (Diflucan) hydrocodone 5 mg-acetaminophen 325 1 tab PO Q6H PRN pain #10 tabs 02/10/22 mg tablet methocarbamol 750 mg tablet 1,500 mg PO Q12HR #20 tabs 02/10/22 Allergies Allergy/AdvReac Type Severity Reaction Status Date / Time Penicillins Allergy Unknown childhood Verified 02/10/22 06:32 Review of Systems Review of Systems Narrative: GENERAL: Denies chills, fatigue, malaise, fever, sweats, travel HEENT: Denies sinus pain, ear pain, sore throat, difficulty swallowing, neck pain RESPIRATORY: Denies dyspnea, cough, wheezing, hemoptysis, sputum. CARDIOVASCULAR: See HPI GASTROINTESTINAL: Denies nausea, vomiting, abdominal pain, diarrhea, constipation, melena. : Denies dysuria, frequency, incontinence, hematuria, urinary retention, flank pain. MUSCULOSKELETAL: See HPI SKIN: No rash, no erythema, no pruritus NEUROLOGIC: Denies weakness, dizziness, headache, numbness, change in speech, confusion PSYCHIATRIC: No concerning psychosocial issues. 12 point review of systems is negative except for those stated above and HPI Patient History Medical History Cervicalgia Chronic left shoulder pain Surgical History No pertinent past surgical history Social History lives independently: Yes Smoking Status: Current every day smoker Tobacco: How many years used: 32 quit status: not considering quitting alcohol intake: current (1-2 beer pers day ) substance use type: marijuana (one joint every 2 wks ) Smoking Status: Current every day smoker alcohol intake frequency: 0-2 drinks per day Substance Use Type: marijuana Exam Initial Vital Signs Initial Vital Signs: Vital Signs Temperature 98.2 F 02/10/22 06:32 GENERAL: Alert 46-year-old and in no acute distress. HEENT: Head atraumatic,EOMI, pupils reactive, face symmetric, no cervical pain no tenderness CARDIOVASCULAR: Regular rate and rhythm without murmurs, rubs or gallops. RESPIRATORY: Breath sounds equal bilaterally, no wheezes rales or rhonchi. ABDOMEN: Soft, nontender. Normoactive bowel sounds all 4 quadrants. No guarding or rebound. EXTREMITIES: Normal range of motion, no clubbing or edema. Neurovascularly intact. All and pain by right shoulder blade muscles Jose Manuel Barragan pain is reproducible with palpation. 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 Good [id number] bilaterally strength is equal bilateral SKIN: Warm, dry, no laceration, no petechiae, no rashes or lesions. Scores HEART Score Heart Score history: Slightly Suspicious Heart Score EKG: Normal Heart Score Age: < 45 years old Heart Score risk factors: 1-2 risk factors Heart Score troponin: < or = to normal limit Heart Score Total: 1 Course Orders Ordered: ED Orders 02/10/22 06:27 XR chest 1V Stat EKG-12 Lead Stat 02/10/22 06:40 Complete Blood Count AUTO DIFF Stat Comprehensive Metabolic Panel Stat Lipase Stat Troponin & CK Cardiac Panel Stat Discontinued Medications Ketorolac Tromethamine (Ketorolac 30 Mg/Ml Vial) 15 mg IV NOW ONE Stop: 02/10/22 06:28 Last Admin: 02/10/22 06:38 Dose: 15 mg Documented By: ADAMARIS Vital Signs Vital signs: Vital Signs - 8 hr 10/11/22 06:32 02/10/22 06:33 Temperature 98.2 F 97.1 F L Pulse Rate 78 Respiratory Rate 11 L Blood Pressure 127/77 Pulse Oximetry 97 Oxygen Delivery Method Room Air MDM - Chest Pain Lab Data Result diagrams: 02/10/22 06:40 02/10/22 06:40 Labs: Lab Results 02/10/22 02/10/22 Range/Units 06:40 06:40 WBC 7.9 (4.5-11.0) X10^3/uL RBC 5.04 (4.5-5.9) X10^6/uL Hgb 16.9 (13.5-17.5) g/dL Hct 48.4 (41-53) % MCV 96.1 (80-100) fL MCH 33.6 (26-34) PG MCHC 35.0 (30-36) % RDW 12.6 (11.6-14.8) % Plt Count 232 (150-400) X10^3/uL Neut % (Auto) 48.0 L (50-75) % Lymph % (Auto) 39.1 (25-40) % Hancock % (Auto) 7.5 (3-14) % Eos % (Auto) 4.6 H (2-4) % Baso % (Auto) 0.8 (0-2) % Neut # (Auto) 3800 (0016-2856) /uL Lymph # (Auto) 3100 (8259-6964) /uL Hancock # (Auto) 600 (0-900) /uL Eos # (Auto) 400 (0-450) /uL Baso # (Auto) 100 (0-100) /uL Sodium 139 (137-145) mmol/L Potassium 4.1 (3.4-5.1) mmol/L Chloride 106 (98-107) mmol/L Carbon Dioxide 24 (22-32) mmol/L BUN 12 (9-20) mg/dL Creatinine 0.79 (0.66-1.25) mg/dL Estimated GFR > 60 (>60) mL/min BUN/Creatinine Ratio 15.2 (6-22) Glucose 105 H (70-100) mg/dL Calcium 8.4 (8.4-10.2) mg/dL Total Bilirubin 0.3 (0.2-1.3) mg/dL AST 24 (17-59) IU/L ALT 20 (<50) IU/L Alkaline Phosphatase 41 (38-126) U/L Total Creatine Kinase 115 (55-170) U/L CK-MB (CK-2) 0.74 (<2.37) ng/mL CK-MB (CK-2) Rel Index 0.6 L (1.5-5.0) % Troponin I < 0.012 (0.01-0.034) ng/mL Total Protein 7.1 (6.3-8.2) g/dL Albumin 4.2 (3.5-5.0) g/dL Globulin 2.9 (1.7-4.1) g/dL Albumin/Globulin Ratio 1.4 (1.0-2.8) Lipase 102 (23-300) U/L Imaging Data Chest x-ray: Radiologist's Impression: Preliminary report no acute findings ECG Data Interpretation: Normal sinus rhythm rate 75 CA interval 124 QRS [address] changes similar to previous EKG MDM Narrative Medical decision making narrative: Patient's pain is reproducible with palpation is right behind the shoulder blade. He has pain in the ulnar distribution it has been ongoing for days. Likely pinched nerve. Cardiac workup was done he has a Zio patch. Blood work EKG and chest x-ray are negative. At this time he has had minimal relief with Toradol. He says that it is affecting his sleep. Discharge Plan Departure Patient Disposition: Home Clinical Impression: Muscle spasm of right shoulder Instructions: DI for Muscle Spasm Activity Restrictions/Additional Instructions: *You have been diagnosed with muscle spasm *What to do: At this time I recommend light stretching heating pad is seems to be and nerve and muscle spasm *Continue to take medications as directed--> SENT TO [facility] Hydrocodone 1 tablet every 6 hours if needed for severe pain Methocarbamol 1500 mg twice a day if needed muscle spasm *Follow up with your primary care provider in 2-3 days or call [phone] *Return to ER if you should have increasing pain weakness numbness tingling chest pain palpitation or any new, worsening or concerning symptoms CONTROLLED SUBSTANCE DISCHARGE (Narcotoic/benzodiazepine/Flexeril/Phenergan) 1. You have been prescribed narcotic medications, it does have acetaminophen/Tylenol/paracetamol in it, DO NOT TAKE MORE THAN 4,00mg in 24 hours of Tylenol. TRAMADOL DOES NOT CONTAIN TYLENOL 2. Please understand that we cannot provide further refills of narcotics, benzodiazepines or controlled substances through the ED and her pain management will need to be through your provider. 3. While on these medications you cannot drive or operate heavy machinery. 4. You cannot sign legal documents or perform any duties such as this. 5. As long as you're taking opiate pain medications he should also be taking a stool softener such as Colace, Dulcolax, MiraLAX or prune juice, to help avoid constipation. Prescriptions: New hydrocodone-acetaminophen 5-325 mg tablet 1 tab PO Q6H PRN (Reason: pain) Qty: 10 0RF methocarbamol 750 mg tablet 1,500 mg PO Q12HR Qty: 20 0RF No Action cyclobenzaprine 10 mg tablet 10 mg PO TID PRN (Reason: muscle spasm) Qty: 30 0RF Rx Instructions: call if refill needed. caution regarding possible sedation. fluconazole [Diflucan] 150 mg tablet 150 mg PO Q3D Qty: 2 0RF Referrals: Tj Guzmán MD [Primary Care Provider] - Stand Alone Forms: Work Release Note Visit Report Forms: Patient Portal/API
[2022-02-10 06:55] LABS: Add Manual Diff / Slide Review NO; Basophils Absolute Auto 100 /uL (0-100); Basophils Percent Auto 0.8 % (0-2); Eosinophils Absolute Auto 400 /uL (0-450); Eosinophils Percent Auto 4.6 % (2-4); Hematocrit 48.4 % (41-53); Hemoglobin 16.9 g/dL (13.5-17.5); Lymphocytes Absolute Auto 3100 /uL (1100-4500); Lymphocytes Percent Auto 39.1 % (25-40); Mean Corpuscular Hemoglobin 33.6 PG (26-34); Mean Corpuscular Volume 96.1 fL (80-100); Monocytes Absolute Auto 600 /uL (0-900); Monocytes Percent Auto 7.5 % (3-14); Neutrophils Absolute Auto 3800 /uL (1500-7000); Platelet Count 232 X10^3/uL (150-400); Red Blood Cell Count 5.04 X10^6/uL (4.5-5.9); Red Cell Distribution Width 12.6 % (11.6-14.8); White Blood Cell Count 7.9 X10^3/uL (4.5-11.0)
[2022-02-10 07:02] LABS: Alanine Aminotransferase 20 IU/L (<50); Albumin 4.2 g/dL (3.5-5.0); Albumin Globulin Ratio 1.4 (1.0-2.8); Alkaline Phosphatase 41 U/L (38-126); Aspartate Aminotransferase 24 IU/L (17-59); BUN Creatinine Ratio 15.2 (6-22); Bilirubin Total 0.3 mg/dL (0.2-1.3); Blood Urea Nitrogen 12 mg/dL (9-20); Calcium 8.4 mg/dL (8.4-10.2); Carbon Dioxide 24 mmol/L (22-32); Chloride 106 mmol/L (98-107); Creatine Kinase 115 U/L (55-170); Estimated Glomerular Filt Rate > 60 mL/min (>60); Globulin 2.9 g/dL (1.7-4.1); Glucose 105 mg/dL (70-100); HEMOLYSIS < 15 (0-50); Lipase 102 U/L (23-300); Potassium 4.1 mmol/L (3.4-5.1); Sodium 139 mmol/L (137-145); Total Protein 7.1 g/dL (6.3-8.2)
[2022-02-10 07:15] LABS: Troponin I < 0.012 ng/mL (0.01-0.034)
[2022-02-10 07:17] LABS: CKMB % Relative Index 0.6 % (1.5-5.0); Creatine Kinase MB 0.74 ng/mL (<2.37)
== END 2022-02-10 07:55 | disposition home or self-care (01) ==
PROVIDERS: Emergency Provider Emergency Medicine; PCP Pediatrics
DX: M62.838 Other muscle spasm (principal); R07.9 Chest pain, unspecified
CPT/HCPCS: 36415; 71045; 80053; 82550; 82553; 83690; 84484; 85025; 93005; 93010; 96374; 99284; J1885

== ENCOUNTER 2022-02-16 03:35 | Emergency (ER) | payer OTHER, MEDICAID, SELFPAY ==
[2022-02-16 03:42] VITALS: BP 143/86; PULSE 89; RESP 20; TEMP 36.7; O2SAT 100; BMI 28.2
--- NOTE | 2022-02-16 03:49 | DI.RAD.S_ITS ---
PROCEDURE: XR CHEST 2V INDICATIONS: pain, trouble breathing TECHNIQUE: 2 views of the chest were acquired. COMPARISON: [facility], CR, XR CHEST 1V, 02/10/2022, 6:40. [facility], CR, XR CHEST 1V, 11/23/2021, 21:21. FINDINGS: Surgical changes and devices: None. Lungs and pleura: Bronchial wall thickening. Prominent pulmonary markings in the upper lobes. No consolidation. No pleural effusions or pneumothorax. Mediastinum: Mediastinal contours are normal. Heart size is normal. Bones and chest wall: No suspicious bony abnormalities. Soft tissues appear unremarkable. IMPRESSION: Bronchial wall thickening suggesting bronchitis or viral pneumonia. This report is concordant with the overnight preliminary interpretation. Dictated by: Carlyle Palacios M.D. on 02/16/2022 at 7:52 Approved by: Carlyle Palacios M.D. on 02/16/2022 at 7:53
[2022-02-16] MEDS: CYCLOBENZAPRINE 10 MG PREPACK 1 BOTTLE MISC (03:54)
[2022-02-16] MEDS: predniSONE 20 MG TABLET 40 MG PO (03:54)
[2022-02-16] MEDS: KETOROLAC 30 MG/ML VIAL IM (03:54)
[2022-02-16] MEDS: HYDROCODONE/ACET 5/325 PREPACK 1 BOTTLE MISC (03:55)
--- NOTE | 2022-02-16 04:40 | ED.GENADULT ---
HPI - General Adult General Chief complaint: Neck Pain/Injury Stated complaint: pain in neck and arm right side, hard to breath Time Seen by Provider: 02/16/22 03:37 Source: patient Mode of arrival: Ambulatory History of Present Illness HPI narrative: 46-year-old male smoker presents for evaluation of a sharp and stabbing burning pain in the right side of his neck that extends down into his right posterior shoulder and into his arm. He denies any numbness, tingling or weakness. He denies any traumatic injury. He denies fever or chills. He is not had any dizziness, weakness or lightheadedness. He was recently seen and evaluated and diagnosed with muscle spasm and given some cyclobenzaprine and hydrocodone which has used, he states that he did experience some relief but not complete. Related Data Previous Rx's Medication Instructions Recorded cyclobenzaprine 10 mg tablet 10 mg PO TID PRN muscle spasm #30 12/15/21 tabs fluconazole 150 mg tablet 150 mg PO Q3D 2 doses #2 tabs 12/15/21 (Diflucan) hydrocodone 5 mg-acetaminophen 325 1 tab PO Q6H PRN pain #10 tabs 02/10/22 mg tablet methocarbamol 750 mg tablet 1,500 mg PO Q12HR #20 tabs 02/10/22 cyclobenzaprine 10 mg tablet 10 mg PO TID PRN muscle spasm #30 02/16/22 tabs gabapentin 300 mg capsule 300 mg PO BEDTIME #30 caps 02/16/22 hydrocodone 5 mg-acetaminophen 325 1 tab PO Q4-6H PRN pain #10 tabs 02/16/22 mg tablet ketorolac 10 mg tablet 10 mg PO Q6H PRN pain #30 tabs 02/16/22 methylprednisolone 4 mg tablets in See Rx Instructions PO .COMPLEX 02/16/22 a dose pack (Medrol ([place])) #21 ea Allergies Allergy/AdvReac Type Severity Reaction Status Date / Time Penicillins Allergy Unknown childhood Verified 02/10/22 06:32 Review of Systems Review of Systems Narrative: GENERAL: Denies chills, fatigue, malaise, fever, sweats. HEENT: Denies sinus pain, ear pain, sore throat, difficulty swallowing, dizziness. RESPIRATORY: Denies dyspnea, cough, wheezing, hemoptysis, sputum. CARDIOVASCULAR: Denies chest pain, palpitations, orthopnea, edema, GASTROINTESTINAL: Denies nausea, vomiting, abdominal pain, diarrhea, constipation, melena. : Denies dysuria, frequency, incontinence, hematuria, urinary retention. MUSCULOSKELETAL: See HPI SKIN: Denies rash, skin lesions, or other NEUROLOGIC: See HPI PSYCHIATRIC: No concerning psychosocial issues. 12 point review of systems is negative except for those stated above Patient History Medical History Cervicalgia Chronic left shoulder pain Surgical History No pertinent past surgical history Social History lives independently: Yes Smoking Status: Current every day smoker Tobacco: How many years used: 32 quit status: not considering quitting alcohol intake: current (1-2 beer pers day ) substance use type: marijuana (one joint every 2 wks ) Smoking Status: Current every day smoker alcohol intake frequency: 0-2 drinks per day Substance Use Type: marijuana Exam Narrative Exam Narrative: GENERAL: [46] year old patient appears stated age. Well-developed patient, in mild distress. Obviously uncomfortable and complaining of pain, rubbing the side of his neck in his posterior shoulder. HEAD: Atraumatic. Normocephalic. EYES: Pupils equal round and reactive. Extraocular motions intact. No scleral icterus. No injection or drainage. ENT: Nose without bleeding, purulent drainage. Throat without erythema, tonsillar hypertrophy or exudate. Airway patent. NECK: Trachea midline. No midline bony tenderness, no increased pain with axial load. CARDIOVASCULAR: Regular rate and rhythm without murmurs, gallops, or rubs. RESPIRATORY: Clear to auscultation. Breath sounds equal bilaterally. No wheezes, rales, or rhonchi. GASTROINTESTINAL: Abdomen soft, non-tender, nondistended. EXTREMITIES: Patient has full but painful range of motion at right shoulder, tenderness is worsened by palpation in the upper traps. No measurable weakness. Radial pulse strong and bounding, cap refill less than 2 seconds BACK: Nontender without deformity or crepitance. No flank tenderness. NEURO: AOx3. SKIN: No rash or erythema of visible areas Initial Vital Signs Initial Vital Signs: Vital Signs Temperature 98.0 F 02/16/22 03:42 Pulse Rate 89 10/17/22 03:42 Respiratory Rate 20 02/16/22 03:42 Blood Pressure 143/86 H 02/16/22 03:42 Pulse Oximetry 100 02/16/22 03:42 Oxygen Delivery Method 02/16/22 03:42 Course Orders Ordered: ED Orders 02/16/22 03:49 Chest [XR chest 2V] Stat Discontinued Medications Hydrocodone Bitart/Acetaminophen (Hydrocodone/Acet 5/325 Prepack) 1 bottle MISC SEEINSTR ONE Stop: 02/16/22 03:50 Last Admin: 02/16/22 03:55 Dose: 1 bottle Documented By: MOOSE Cyclobenzaprine HCl (Cyclobenzaprine 10 Mg Prepack) 1 bottle MISC SEEINSTR ONE Stop: 02/16/22 03:46 Last Admin: 02/16/22 03:54 Dose: 1 bottle Documented By: MOOSE Ketorolac Tromethamine (Ketorolac 30 Mg/Ml Vial) 30 mg IM NOW ONE Stop: 02/16/22 03:46 Last Admin: 02/16/22 03:54 Dose: 30 mg Documented By: MOOSE Prednisone (Prednisone 20 Mg Tablet) 40 mg PO NOW ONE Stop: 02/16/22 03:50 Last Admin: 02/16/22 03:54 Dose: 40 mg Documented By: MOOSE Vital Signs Vital signs: Vital Signs - 8 hr 02/16/22 03:42 Temperature 98.0 F Pulse Rate 89 Respiratory Rate 20 Blood Pressure 143/86 H Pulse Oximetry 100 Oxygen Delivery Method Room Air Medical Decision Making [facility] Narrative Medical decision making narrative: Patient has reassuring history and physical exam with complaint of right-sided neck upper shoulder pain that radiates into his arm. He has no measurable weakness, sensory deficit or vascular compromise. He denies any trauma, overuse or fever. He does have some improvement in symptoms with above-stated therapies. Patient given extensive return precautions and questions answered to his apparent satisfaction Discharge Plan Departure Patient Disposition: Home Clinical Impression: Muscle spasm of right shoulder, Cervical radiculopathy Instructions: DI for Cervical Radiculopathy, DI for Neck Pain Activity Restrictions/Additional Instructions: *You have been diagnosed with [shoulder pain and cervical radiculopathy] *What to do: *Please continue to take your regular medications as directed. [x ] New medication prescriptions sent to your pharmacy: [[facility] ] [ ] New medication written as a paper prescription [ ] No new medications given *Please follow up with your primary care provider in 2-3 days, call for an appointment. Let them know you were seen in the Emergency Department and that we ask that you be seen in follow up. We will electronically transmit a record of today's note if your PCP is in our system *If you do not have a primary care provider please contact the [facility] Resource line at [phone]. They will ask some questions about your medical history and help get you set up with a doctor in the community. *Return to Emergency Department if you should have any new, worsening or concerning symptoms You have been prescribed a short course of narcotic medications. These are potentially dangerous and addictive medications that should be used carefully. While on these medications you cannot drive or operate heavy machinery. Additionally, you cannot sign legal documents or perform any duties such as this. 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 Please understand that we cannot provide further refills of narcotics or controlled substances through the ED and your pain management will need to be through your Primary Care Provider Prescriptions: New cyclobenzaprine 10 mg tablet 10 mg PO TID PRN (Reason: muscle spasm) Qty: 30 0RF hydrocodone-acetaminophen 5-325 mg tablet 1 tab PO Q4-6H PRN (Reason: pain) Qty: 10 0RF ketorolac 10 mg tablet 10 mg PO Q6H PRN (Reason: pain) Qty: 30 0RF gabapentin 300 mg capsule 300 mg PO BEDTIME Qty: 30 0RF methylprednisolone [Medrol ([place])] 4 mg tablets,dose pack See Rx Instructions .ROUTE .COMPLEX Qty: 21 0RF Rx Instructions: orally per package directions No Action cyclobenzaprine 10 mg tablet 10 mg PO TID PRN (Reason: muscle spasm) Qty: 30 0RF Rx Instructions: call if refill needed. caution regarding possible sedation. fluconazole [Diflucan] 150 mg tablet 150 mg PO Q3D Qty: 2 0RF hydrocodone-acetaminophen 5-325 mg tablet 1 tab PO Q6H PRN (Reason: pain) Qty: 10 0RF methocarbamol 750 mg tablet 1,500 mg PO Q12HR Qty: 20 0RF Referrals: Tj Guzmán MD [Primary Care Provider] - Stand Alone Forms: Work Release Note
[2022-02-16 04:48] VITALS: BP 148/88; PULSE 80; RESP 16; O2SAT 100
== END 2022-02-16 04:49 | disposition home or self-care (01) ==
PROVIDERS: Emergency Provider Emergency Medicine; PCP Pediatrics
DX: M62.838 Other muscle spasm (principal); M54.12 Radiculopathy, cervical region
CPT/HCPCS: 71046; 96372; 99283; J1885

== ENCOUNTER → 2022-03-04 18:56 | Outpatient (CLI) | payer OTHER, MEDICAID, SELFPAY ==
--- NOTE | 2022-03-04 18:57 | DI.MRI.S_ITS ---
PROCEDURE: MR CERVICAL SPINE WO CON INDICATIONS: cervical radiculopathy TECHNIQUE: Noncontrast sagittal T1 spin echo and T2 fast spin echo, sagittal STIR, foraminal oblique sagittal T2 fast spin echo, and axial gradient echo or T2 fast spin echo through the cervical spine. COMPARISON: None. FINDINGS: Image quality: Excellent. Alignment and Curvature: There is 2 mm retrolisthesis of C4 on C5. Bone Marrow: Marrow demonstrates normal overall signal. Spinal Cord: Visualized spinal cord has normal size and signal. No cerebellar tonsillar herniation. Paraspinous Soft Tissues: No paravertebral masses. Prevertebral soft tissues are normal in thickness. Discs: Mild multilevel disc desiccation is present. C2-C3: No disc bulge, spinal stenosis or foraminal narrowing. C3-C4: Mild disc bulge with moderate spinal stenosis. No foraminal narrowing. C4-C5: Mild broad-based disc bulge with moderate to severe spinal stenosis. There is moderate to severe bilateral foraminal narrowing, left greater than right with uncovertebral hypertrophy. C5-C6: Mild disc bulge with moderate spinal stenosis. Moderate bilateral foraminal narrowing with uncovertebral hypertrophy. C6-C7: Mild disc bulge with superimposed posterior central protrusion. Mild to moderate spinal stenosis. Minimal left foraminal narrowing. C7-T1: No disc bulge, spinal stenosis or foraminal narrowing. IMPRESSION: Multilevel disc bulges. Spinal stenosis is present at multiple levels most severe at C4-5 secondary to disc bulge. 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 Multilevel foraminal narrowing most notable at C4-5 with uncovertebral arthropathy. Dictated by: Ashli Simpson M.D. on 03/05/2022 at 10:25 Approved by: Ashli Simpson M.D. on 03/05/2022 at 10:49
== END ==
PROVIDERS: PCP Family Medicine; Referring Provider Family Medicine; Visit Provider Family Medicine
DX: M50.11 Cervical disc disorder with radiculopathy, high cervical region (principal); M48.02 Spinal stenosis, cervical region
CPT/HCPCS: 72141

== ENCOUNTER 2022-03-18 15:35 | Emergency (ER) | payer OTHER, MEDICAID, SELFPAY ==
[2022-03-18 15:41] VITALS: BP 147/81; PULSE 111; RESP 18; TEMP 37.1; O2SAT 99; BMI 26.4
--- NOTE | 2022-03-18 15:50 | DI.CT.S_ITS ---
PROCEDURE: CT CERVICAL SPINE WO CON INDICATIONS: new injury. pain TECHNIQUE: Noncontrast 3 mm thick sections acquired from the skull base to the T4 level. Sagittal and coronal reformats were then constructed. For radiation dose reduction, the following was used: automated exposure control, adjustment of mA and/or kV according to patient size. COMPARISON: [facility], CT, CT CERVICAL SPINE WO CON, 10/31/2018, 3:08. FINDINGS: Image quality: adequate. Bones: No fractures or dislocations. Visualized superior ribs are intact. Moderate multilevel degenerative changes present. Soft tissues: Prevertebral soft tissues are normal in thickness. No paravertebral hematomas. No apical pneumothoraces. IMPRESSION: No acute cervical spine fracture visualized. Dictated by: Osvaldo Grover M.D. on 03/18/2022 at 16:09 Approved by: Osvaldo Grover M.D. on 03/18/2022 at 16:20
[2022-03-18] MEDS: LIDOCAINE PATCH 1 EACH ADH..PATCH TOP (16:19)
[2022-03-18] MEDS: methocarbamoL 500 MG TABLET PO (16:19)
[2022-03-18] MEDS: KETOROLAC 30 MG/ML VIAL 15 MG IM (16:20)
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
--- NOTE | 2022-03-18 16:43 | ED_ITS ---
HPI - Neck Pain/Injury <CLAU Gomez - Last Filed: 03/18/22 17:05> General Chief Complaint: Neck Pain/Injury Stated Complaint: neck pain, hx of vertabrae issues Time Seen by Provider: 03/18/22 15:49 Mode of arrival: Ambulatory History of Present Illness HPI Narrative: This is a 46-year-old male with history of cervicalgia with recent cervical spine MRI in 03/04/2022 which shows multilevel multilevel disc bulges with spinal stenosis at multiple levels and most severe C4-5 secondary to disc bulge. Multilevel foraminal narrowing most notable at C4-5 with uncovertebral arthropathy. Patient returns to the emergency department for ongoing pain, states that he is taken a muscle relaxer, gabapentin and a steroid pack but is not taking any anti-inflammatories, Tylenol. He denies any recent trauma, new injury, denies any weakness, numbness or tingling. He was given Toradol, methocarbamol and a lidocaine patch and when I came into evaluate him 1 hour later, he stated that his pain had 0 improvement. He is nontoxic appearing, ambulatory, has full range of motion of his neck only limited due to pain, without fever and denies any recent nausea vomiting. Related Data Previous Rx's Medication Instructions Recorded methylprednisolone 4 mg tablets in See Rx Instructions PO .COMPLEX 02/16/22 a dose pack (Medrol ([place])) #21 ea cyclobenzaprine 10 mg tablet 10 mg PO TID PRN muscle spasm #30 02/25/22 tabs gabapentin 300 mg capsule 300 mg PO Q8H PRN arm 02/25/22 pain/numbness #60 caps naproxen 500 mg tablet 500 mg PO BID PRN pain #60 tabs 02/25/22 acetaminophen 500 mg tablet 1,000 mg PO Q6H PRN pain #60 tabs 03/18/22 (Tylenol Extra Strength) ibuprofen 800 mg tablet 800 mg PO Q8H PRN pain #30 tabs 03/18/22 methocarbamol 750 mg tablet 750 mg PO Q8H PRN muscle spasm #20 03/18/22 tabs Allergies Allergy/AdvReac Type Severity Reaction Status Date / Time Penicillins Allergy Unknown childhood Verified 03/12/22 13:43 Review of Systems <CLAU Gomez - Last Filed: 03/18/22 17:05> Review of Systems Narrative: Review of systems is negative for acute abnormalities unless otherwise noted in HPI Patient History <CLAU Gomez - Last Filed: 03/18/22 17:05> Medical History Cervical disc disorder with radiculopathy, cervicothoracic region Cervicalgia Chronic left shoulder pain Tobacco dependence Surgical History No pertinent past surgical history Social History lives independently: Yes Smoking Status: Current every day smoker Tobacco: How many years used: 32 quit status: not considering quitting alcohol intake: current (1-2 beer pers day ) substance use type: marijuana (one joint every 2 wks ) Smoking Status: Current every day smoker alcohol intake frequency: 0-2 drinks per day Substance Use Type: marijuana Exam <CLAU Gomez - Last Filed: 03/18/22 17:05> Narrative Exam Narrative: Reviewed vitals signs and nursing notes. General: cooperative, comfortable, in no acute distress, well groomed, patient is mildly agitated although pleasant and cooperative, flushed face, denies alcohol intake today, denies substance abuse MSK: moves all extremities, neurovascularly intact, no weakness, normal tone without cervical spine tenderness to palpation, paraspinal musculature is tense, neck is supple, full range of motion only limited due to pain, able to put chin to chest and without cervical tenderness, afebrile Skin: brisk capillary refill, without pallor or erythema Neuro: normal speech and cognition, A&O x3, ambulatory, clear speech Psych: mental status is grossly normal, congruent mood, normal affect, pleasant and cooperative Initial Vital Signs Initial Vital Signs: Vital Signs Temperature 98.7 F 03/18/22 15:41 Pulse Rate 111 H 03/18/22 15:41 Respiratory Rate 18 03/18/22 15:41 Blood Pressure 147/81 H 03/18/22 15:41 Pulse Oximetry 99 03/18/22 15:41 Oxygen Delivery Method 03/18/22 15:41 <Wisam Perez DO - Last Filed: 03/22/22 07:18> Initial Vital Signs Initial Vital Signs: Vital Signs Temperature 98.7 F 03/18/22 15:41 Pulse Rate 111 H 03/18/22 15:41 Respiratory Rate 18 03/18/22 15:41 Blood Pressure 147/81 H 03/18/22 15:41 Pulse Oximetry 99 03/18/22 15:41 Oxygen Delivery Method 03/18/22 15:41 Course <CLAU Gomez - Last Filed: 03/18/22 17:05> Orders Ordered: Discontinued Medications Hydrocodone Bitart/Acetaminophen (Hydrocodone/Acet 5/325 Tablet) 1 tab PO NOW ONE Stop: 03/18/22 16:51 Last Admin: 03/18/22 17:07 Dose: 1 tab Documented By: BT Ketorolac Tromethamine (Ketorolac 30 Mg/Ml Vial) 15 mg IM NOW ONE Stop: 03/18/22 15:51 Last Admin: 03/18/22 16:20 Dose: 15 mg Documented By: SB Lidocaine (Lidocaine Patch 1 Each Adh..Patch) 1 each TOP NOW ONE Stop: 03/18/22 15:51 Last Admin: 03/18/22 16:19 Dose: 1 each Documented By: SB Methocarbamol (Methocarbamol 500 Mg Tablet) 500 mg PO NOW ONE Stop: 03/18/22 15:51 Last Admin: 03/18/22 16:19 Dose: 500 mg Documented By: SB Vital Signs Vital signs: Vital Signs - 8 hr 03/18/22 15:41 Temperature 98.7 F Pulse Rate 111 H Respiratory Rate 18 Blood Pressure 147/81 H Pulse Oximetry 99 Oxygen Delivery Method Room Air <Wisam Perez DO - Last Filed: 03/22/22 07:18> Orders Ordered: Discontinued Medications Hydrocodone Bitart/Acetaminophen (Hydrocodone/Acet 5/325 Tablet) 1 tab PO NOW ONE Stop: 03/18/22 16:51 Last Admin: 03/18/22 17:07 Dose: 1 tab Documented By: BT Ketorolac Tromethamine (Ketorolac 30 Mg/Ml Vial) 15 mg IM NOW ONE Stop: 03/18/22 15:51 Last Admin: 03/18/22 16:20 Dose: 15 mg Documented By: SB Lidocaine (Lidocaine Patch 1 Each Adh..Patch) 1 each TOP NOW ONE Stop: 03/18/22 15:51 Last Admin: 03/18/22 16:19 Dose: 1 each Documented By: ZACK Methocarbamol (Methocarbamol 500 Mg Tablet) 500 mg PO NOW ONE Stop: 03/18/22 15:51 Last Admin: 03/18/22 16:19 Dose: 500 mg Documented By: ZACK Vital Signs Vital signs: Vital Signs - 8 hr 03/18/22 15:41 Temperature 98.7 F Pulse Rate 111 H Respiratory Rate 18 Blood Pressure 147/81 H Pulse Oximetry 99 Oxygen Delivery Method Room Air MDM - Neck Pain/Injury <Cathi Bello [employer]OURCE OFFICER - Last Filed: 03/18/22 17:05> Medical Records Medical records narrative: PROCEDURE:? MR CERVICAL SPINE WO CON ? INDICATIONS:? cervical radiculopathy ? TECHNIQUE:? Noncontrast sagittal T1 spin echo and T2 fast spin echo, sagittal STIR, foraminal oblique sagittal T2 fast spin echo, and axial gradient echo or T2 fast spin echo through the cervical spine.? ? COMPARISON:? None. ? FINDINGS:? Image quality:? Excellent.? ? Alignment and Curvature:? There is 2 mm retrolisthesis of C4 on C5. ? Bone Marrow:? Marrow demonstrates normal overall signal.? ? Spinal Cord:? Visualized spinal cord has normal size and signal.? No cerebellar tonsillar herniation.? ? Paraspinous Soft Tissues:? No paravertebral masses.? Prevertebral soft tissues are normal in thickness.? ? Discs: Mild multilevel disc desiccation is present. ? C2-C3:? No disc bulge, spinal stenosis or foraminal narrowing. ? C3-C4:? Mild disc bulge with moderate spinal stenosis.? No foraminal narrowing. ? C4-C5:? Mild broad-based disc bulge with moderate to severe spinal stenosis.? There is moderate to severe bilateral foraminal narrowing, left greater than right with uncovertebral hypertrophy. ? C5-C6:? Mild disc bulge with moderate spinal stenosis.? Moderate bilateral foraminal narrowing with uncovertebral hypertrophy. ? C6-C7:? Mild disc bulge with superimposed posterior central protrusion.? Mild to moderate spinal stenosis.? Minimal left foraminal narrowing. ? C7-T1:? No disc bulge, spinal stenosis or foraminal narrowing. ? IMPRESSION:? ? Multilevel disc bulges. ? Spinal stenosis is present at multiple levels most severe at C4-5 secondary to disc bulge.? 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 ? Multilevel foraminal narrowing most notable at C4-5 with uncovertebral arthropathy. ? ? Dictated by: Ashli Simpson M.D. on 03/05/2022 at 10:25 ? ? Approved by: Ashli Simpson M.D. on 03/05/2022 at 10:49 ? Imaging Data CT - cervical spine: Radiologist's Impression: PROCEDURE:? CT CERVICAL SPINE WO CON ? INDICATIONS:? new injury. pain ? TECHNIQUE:? Noncontrast 3 mm thick sections acquired from the skull base to the T4 level.? Sagittal and coronal reformats were then constructed.? For radiation dose reduction, the following was used:? automated exposure control, adjustment of mA and/or kV according to patient size.? ? COMPARISON:? [facility], CT, CT CERVICAL SPINE WO CON, 10/31/2018, 3:08. ? FINDINGS:? Image quality:? adequate.? ? Bones:? No fractures or dislocations.? Visualized superior ribs are intact.? Moderate multilevel degenerative changes present. ? Soft tissues:? Prevertebral soft tissues are normal in thickness.? No paravertebral hematomas.? No apical pneumothoraces.? ? ? IMPRESSION:? No acute cervical spine fracture visualized. ? Dictated by: Osvaldo Grover M.D. on 03/18/2022 at 16:09 ? ? Approved by: Osvaldo Grover M.D. on 03/18/2022 at 16:20 ? MDM Narrative Medical decision making narrative: This is a 46-year-old male presents to the emergency department complaining of ongoing neck pain following an appointment with his chiropractor and sports Medicine Clinic. He had a cervical spine MRI on 03/04/2022 which shows degenerative disc disease, most prominent at C4-5 with cervical spine stenosis secondary to multiple disc bulging. Today patient complains of same symptoms without new trauma. States that he is waiting to hear about steroid injections but had not heard back about his MRI yet. He was given a copy of his MRI, cervical spine CT today was completed without acute abnormality or any changes since his previous scan on 03/04/2022. He is nontoxic appearing, is without weakness, sensation changes, incontinence or other right side symptom. He was given pain medications, muscle relaxers lidocaine patch and stated that it did nothing for his pain. At home he was not taking Tylenol or ibuprofen and states that he was taking only the muscle relaxer, steroid, and gabapentin. Discussed treating his pain with Tylenol ibuprofen at baseline and take any other medications for those specific symptoms. Encouraged him stay hydrated, take his medications with food and water, and to follow-up at [facility] and with his PCP. I have provided him copies of his CT and his MRI. Gave him contact information for [facility] if he chooses to follow-up there. Multiple etiologies of back pain considered including; Epidural abscess, cauda equina, mass occupying lesion, lumbar fracture, intra-abdominal pathology chronic neuropathic pain and other considered. Patient is appropriate and amenable to discharge home. Vital signs are stable on repeat examination is unremarkable. Patient has been informed of results. Patient has been given strict return to ER precautions for any new or worsening symptoms. Patient understands to follow up closely with outpatient providers as instructed. Patient understands plan and agrees to discharge home. All questions and concerns answered at this time. Discharge Plan Departure Patient Disposition: Home Clinical Impression: Cervicalgia, Cervical radiculopathy Degenerative disk disease Qualifiers: Spinal region: mid-cervical Mid-cervical spinal level: C4-C5 Qualified Code(s): M50.321 - Other cervical disc degeneration at C4-C5 level Instructions: Degenerative Disc Disease, DI for Cervical Radiculopathy, DI for Neck Pain Activity Restrictions/Additional Instructions: *You have been diagnosed with no acute changes of your cervical sprain. Please continue on your steroid pack which you have already been prescribed, start taking Tylenol 1000 mg every 6 hours with 800 mg of ibuprofen with food and water. Please do this regularly until your pain symptoms improve, you can use your muscle relaxers as needed for spasm, use topical lidocaine patches, CBD oil, or diclofenac gel as needed. Please follow-up with your specialists, I have printed your MRI report for you, please take this your sports Clinic to help yourself. You may benefit from physical therapy in the meantime, please follow-up with your primary care provider about steroid injections, pain management, physical therapy and/or outpatient needs. You may schedule an appointment at [facility] for evaluation following this visit and they have access to your MRI. I hope you feel better soon. *What to do: *Please continue to take your regular medications as directed. [x ] New medication prescriptions sent to your pharmacy: [ [facility]] [ ] New medication written as a paper prescription [] No new medications given *Please follow up with your primary care provider in 2-3 days, call for an appointment. Let them know you were seen in the Emergency Department and that we asked that you be seen for follow-up. We will electronically transmit a record of today's note if your PCP is in our system *If you do not have a primary care provider please contact [phone] to [facility] with one of the [facility] primary care providers. *Return to Emergency Department if you should have any new, worsening, or concerning symptoms, such as [fever greater than 101F, chills, worsening pain, persistent vomiting or other bothersome symptoms]. Prescriptions: New ibuprofen 800 mg tablet 800 mg PO Q8H PRN (Reason: pain) Qty: 30 0RF methocarbamol 750 mg tablet 750 mg PO Q8H PRN (Reason: muscle spasm) Qty: 20 0RF acetaminophen [Tylenol Extra Strength] 500 mg tablet 1,000 mg PO Q6H PRN (Reason: pain) Qty: 60 0RF No Action cyclobenzaprine 10 mg tablet 10 mg PO TID PRN (Reason: muscle spasm) Qty: 30 5RF Rx Instructions: call if refill needed. caution regarding possible sedation. gabapentin 300 mg capsule 300 mg PO Q8H PRN (Reason: arm pain/numbness) Qty: 60 3RF naproxen 500 mg tablet 500 mg PO BID PRN (Reason: pain) Qty: 60 11RF Rx Instructions: with food methylprednisolone [Medrol ([place])] 4 mg tablets,dose pack See Rx Instructions .ROUTE .COMPLEX Qty: 21 0RF Rx Instructions: orally per package directions Referrals: [facility] [Provider Group] Leon Hutchins DO [Primary Care Provider] - Visit Report Forms: Patient Portal/API <Wisam Perez DO - Last Filed: 03/22/22 07:18> [facility] ED Attending Jovita Attestation: I was immediately available in the department for consultation. This documentation has been reviewed and I agree with assessment and plan. Supervised by Wisam Perez DO
[2022-03-18] MEDS: HYDROCODONE/ACET 5/325 TABLET 1 TAB PO (17:07)
[2022-03-18 17:14] VITALS: BP 140/83; PULSE 98; RESP 19; O2SAT 96
== END 2022-03-18 17:13 | disposition home or self-care (01) ==
PROVIDERS: Emergency Provider Nurse Practitioner Critical Care Medicine; PCP Family Medicine
DX: M54.12 Radiculopathy, cervical region (principal); M50.321 Other cervical disc degeneration at C4-C5 level
CPT/HCPCS: 72125; 96372; 99283; J1885

== ENCOUNTER 2022-03-24 09:42 | Emergency (ER) | payer OTHER, MEDICAID, SELFPAY ==
[2022-03-24 10:06] VITALS: PULSE 84; O2SAT 98
[2022-03-24 10:08] VITALS: BP 140/71; PULSE 108; RESP 24; TEMP 36.4; O2SAT 99; BMI 26.6
[2022-03-24 10:12] VITALS: BP 140/71; PULSE 109; O2SAT 98
--- NOTE | 2022-03-24 10:29 | ED.NECK ---
HPI - Neck Pain/Injury General Chief Complaint: Neck Pain/Injury Stated Complaint: nerve problem t-1 Time Seen by Provider: 03/24/22 10:03 Source: patient Mode of arrival: Ambulatory History of Present Illness HPI Narrative: Patient is a 46-year-old male with known degenerative disc disease in the cervical spine. Was seen here in the emergency department within the past week. Had a CT scan. Also recently has had an MRI. Is on gabapentin but he states he is only taking this 1 time a day but is recently doubled his dose. He is also taking methocarbamol. Also has steroids at home but he does not take the steroids because he states ?I am afraid to take them ?states he did not take his medicines this morning. Unsure why. He is very anxious when discussing the symptoms with him. Since his last visit here he has tried to call the orthopedic department but states he was on hold for 4 hours. Has not had follow-up. Related Data Previous Rx's Medication Instructions Recorded methylprednisolone 4 mg tablets in See Rx Instructions PO .COMPLEX 02/16/22 a dose pack (Medrol ([place])) #21 ea cyclobenzaprine 10 mg tablet 10 mg PO TID PRN muscle spasm #30 02/25/22 tabs gabapentin 300 mg capsule 300 mg PO Q8H PRN arm 02/25/22 pain/numbness #60 caps naproxen 500 mg tablet 500 mg PO BID PRN pain #60 tabs 02/25/22 acetaminophen 500 mg tablet 1,000 mg PO Q6H PRN pain #60 tabs 03/18/22 (Tylenol Extra Strength) ibuprofen 800 mg tablet 800 mg PO Q8H PRN pain #30 tabs 03/18/22 methocarbamol 750 mg tablet 750 mg PO Q8H PRN muscle spasm #20 03/18/22 tabs Allergies Allergy/AdvReac Type Severity Reaction Status Date / Time Penicillins Allergy Unknown childhood Verified 03/12/22 13:43 Review of Systems Musculoskeletal Musculoskeletal: Reports system reviewed and no additional complaints, except as documented Neurologic Neurologic: Reports system reviewed and no additional complaints, except as documented Psychiatric Psychiatric: Reports system reviewed and no additional complaints, except as documented Patient History Medical History Cervical disc disorder with radiculopathy, cervicothoracic region Cervicalgia Chronic left shoulder pain Tobacco dependence Surgical History No pertinent past surgical history Social History lives independently: Yes Smoking Status: Current every day smoker Tobacco: How many years used: 32 quit status: not considering quitting alcohol intake: current (1-2 beer pers day ) substance use type: marijuana (one joint every 2 wks ) Smoking Status: Current every day smoker alcohol intake frequency: 0-2 drinks per day Substance Use Type: marijuana Exam Initial Vital Signs Initial Vital Signs: Vital Signs Pulse Rate 84 03/24/22 10:06 Pulse Oximetry 98 03/24/22 10:06 HENMT Head: normal to inspection and normocephalic Resp Effort & Inspection: normal respiratory effort Back/Spine/Pelvis Cervical Spine: cervical muscular tenderness and cervical spinal tenderness Skin General: no rashes or lesions noted Neuro General: patient alert, patient awake and moves all extremities Extrem General: normal to inspection Psych Other: Anxious Course Orders Ordered: Discontinued Medications Lorazepam (Lorazepam 0.5 Mg Tablet) 1 mg PO NOW ONE Stop: 03/24/22 10:29 Last Admin: 03/24/22 10:43 Dose: 1 mg Documented By: RB Lorazepam (Lorazepam 0.5 Mg Tablet) 1 mg PO NOW ONE Stop: 03/24/22 11:30 Last Admin: 03/24/22 11:34 Dose: 1 mg Documented By: RB Nicotine (Nicotine 21 Mg Patch) 21 mg TOP NOW ONE Stop: 03/24/22 11:30 Last Admin: 03/24/22 11:34 Dose: 21 mg Documented By: RB Vital Signs Vital signs: Vital Signs - 8 hr 03/24/22 10:12 03/24/22 10:12 03/24/22 10:30 Pulse Rate 109 H 118 H Blood Pressure 140/71 Pulse Oximetry 98 98 MDM - Neck Pain/Injury MDM Narrative Medical decision making narrative: Very difficult initially to determine why the patient was here what medications he was on. He is very anxious. He it very much flight of ideas. He was given Ativan. This helped improve things somewhat. It was re-dosed which helped things even more. He then stated that he was drinking last evening. He denied any drug use. He actually stated that his presenting symptoms were better after the Ativan. He has medications at home. He will continue to take these medicines. He was given return precautions. He expressed understanding and agreement. Discharge Plan Departure Patient Disposition: Home Clinical Impression: Cervical radiculopathy Instructions: Chronic Neck Pain Activity Restrictions/Additional Instructions: I do recommend that you take your gabapentin as directed. This should be 300 mg 3 times a day. This should equal to 1 tablet by mouth 3 times a day. I also recommend you take the Medrol Dosepak which is the steroid. The direction should be on the bottle for this. Contact the Orthopedic Department at the numbers you have been provided previously. Return to the emergency department for any new symptoms. Prescriptions: No Action cyclobenzaprine 10 mg tablet 10 mg PO TID PRN (Reason: muscle spasm) Qty: 30 5RF Rx Instructions: call if refill needed. caution regarding possible sedation. gabapentin 300 mg capsule 300 mg PO Q8H PRN (Reason: arm pain/numbness) Qty: 60 3RF naproxen 500 mg tablet 500 mg PO BID PRN (Reason: pain) Qty: 60 11RF Rx Instructions: with food methylprednisolone [Medrol ([place])] 4 mg tablets,dose pack See Rx Instructions .ROUTE .COMPLEX Qty: 21 0RF Rx Instructions: orally per package directions ibuprofen 800 mg tablet 800 mg PO Q8H PRN (Reason: pain) Qty: 30 0RF methocarbamol 750 mg tablet 750 mg PO Q8H PRN (Reason: muscle spasm) Qty: 20 0RF acetaminophen [Tylenol Extra Strength] 500 mg tablet 1,000 mg PO Q6H PRN (Reason: pain) Qty: 60 0RF Referrals: Leon Hutchins DO [Primary Care Provider] - Visit Report Forms: Patient Portal/API
[2022-03-24 10:30] VITALS: PULSE 118; O2SAT 98
[2022-03-24] MEDS: LORazepam 0.5 MG TABLET 1 MG PO ×2 (10:43→11:34)
[2022-03-24] MEDS: NICOTINE 21 MG PATCH TOP (11:34)
--- NOTE | 2022-03-24 12:35 | PC.NURSE ---
Pt coming out of room multiple times without clothes on with mask on head stating he thinks he hears his ex out in the department talking about him. Reoriented and easily redirected and assured that no family members are here for him. Appears to be tolerating his pain more appropriately after being medicated per MAR.
== END 2022-03-24 13:41 | disposition home or self-care (01) ==
PROVIDERS: Emergency Provider Emergency Medicine; PCP Family Medicine
DX: M54.12 Radiculopathy, cervical region (principal)
CPT/HCPCS: 99283

== ENCOUNTER 2022-04-21 09:20 | Outpatient (CLI) | payer OTHER, MEDICAID, SELFPAY ==
[2022-04-21] VITALS (8 sets, daily range): BP systolic 110–128; BP diastolic 76–94; PULSE 86–109; RESP 12–18; TEMP 36.7; O2SAT 97–99
--- NOTE | 2022-04-21 09:21 | DI.RAD.S_ITS ---
PROCEDURE: PAIN C/T INTERLAMINAR INJECT INDICATIONS: SPINAL STENOSIS COMPARISON: [facility], CT, CT CERVICAL SPINE WO CON, 03/18/2022, 15:56. [facility], MR, MR CERVICAL SPINE WO CON, 03/04/2022, 19:04. FINDINGS: Fluoroscopic spot filming was performed to verify placement of spinal needles at the C7-T1 level(s), as labeled on the films. Appropriate location(s) of the needle tip(s) was confirmed by injection of iodinated contrast. IMPRESSION: Fluoroscopy for pain management. Dictated by: Sylvia Velasquez M.D. on 04/21/2022 at 10:48 Approved by: Sylvia Velasquez M.D. on 04/21/2022 at 10:48
[2022-04-21] MEDS: MIDAZOLAM 2 MG/2 ML VIAL 4 MG IV (10:08)
[2022-04-21] MEDS: IOPAMIDOL 15 ML VIAL 3 ML INJ (10:12)
[2022-04-21] MEDS: DEXAMETHASONE 10 MG/ML VIAL 30 MG INJ (10:13)
[2022-04-21] MEDS: BUPIVACAINE 0.25% (PF) VIAL 2 ML SUBCUT (10:14)
--- NOTE | 2022-04-21 10:20 | P.PCN_ITS ---
Date/Time/Diagnoses Date of procedure: 04/21/22 Time of procedure: 10:20 Pre-procedure diagnosis: 1. CERVICAL STENOSIS, 2. CERVICAL HNP WITH UPPER EXTREMITY RADICULAR FEATURES Post-procedure diagnosis: same Procedure Notes Procedure: 1. FLUORSCOPICALLY GUIDED CONTRAST CONTROLLED INTERLAMINAR EPIDURAL STEROID INJECTION - C6/7 TL TAMY Indications: Matt is referred by Dr. Hutchins for treatment of Cervical HNP with Upper Extremity Paresthesias. Physician: Rober Cantu Total Fluoroscopy time (seconds): 29 Total sedation minutes: 12 Complications: none Procedure in detail & Post-procedure care: FINDINGS Cervical Stenosis due to disc deterioration and nerve root irritation and nerve root irritation DESCRIPTION OF PROCEDURE Fluoroscopically guided, contrast-controlled C6/7 translaminar epidural steroid injection with conscious sedation. Following review of allergy and review of potential side effects and complications, including, but not necessarily limited to, infection, allergic reaction, local tissue breakdown, temporary as well as permanent nerve injury, stroke, paralysis, and possible , the patient indicated that patient understood and agreed to proceed. An informed consent document was signed by the patient, witnessed by a nurse, and placed in the patient's chart. Additionally, other treatment options including modalities, medications, and physical therapy were reviewed with the patient. After review of previous anaesthesic history and IV conscious sedation the patient was deemed safe to proceed with today?s procedure with IV conscious sedation as ASA class II designation. Safety time-out was performed to confirm patient ID, procedure to be performed and site of procedure. IV sedation was accomplished with a combination of 2mg of Versed administered by the RN after DO order, titrated to patient comfort during the course of the procedure while the patient remained responsive to all verbal commands. In the prone position, following sterile prep and drape of the cervical region, the C6/7 translaminar space was identified fluoroscopically. The skin was anesthetized via a 25-gauge 1.5-inch needle with 1% lidocaine solution. At this point, a 25-gauge, 2.5-inch short bevel spinal needle was atraumatically introduced and advanced under fluoroscopic guidance into epidural space at the C6/7 translaminar space. Depth was confirmed on lateral view. Radiological data, including multiple fluoroscopic views of the cervical spine, reveal a spinal needle at the C6/7 translaminar space. Lateral views then show placement of the needle in the epidural space. Subsequent views show contrast material flowing superiorly and inferiorly in the epidural space. DSA fluoroscopy with live contrast injection, once again, confirmed no vascular or intrathecal uptake. At this point, using loss of resistance technique with saline and air, the epidural space was entered. Following negative aspiration, injection of approximately 1.5 cc of Isovue-200 with live fluoroscopy in the AP view confirmed epidural flow in the epidural space without vascular or intrathecal uptake observed. Subsequently, a test dose of 1cc of 1% lidocaine solution was injected and patient was observed for two minutes without signs or symptoms of complications, including abdominal pain, shortness of breath, bilateral upper or lower extremity weakness, nausea and vomiting, prior to steroid injection. At this point, 3cc or 30mg of dexamethasone was then injected without incident. The patient tolerated the procedure well without signs or symptoms of complic ations prior to being transferred to the recovery area for further monitoring, The patient was then transferred to the recovery area where they were observed for an appropriate period of time after the injection. The patient reported a VAS score of 6 prior to the procedure and a post-procedure VAS of 0. POST OP INSTRUCTIONS The patient was provided a Pain Log to continue to record their response to the target-specific procedure prior to follow-up visit with the referring provider. Additionally, specific post-injection care instructions and a contact number to our office were provided if concerns arise regarding possible complications associated with the procedure are suspected.
== END 2022-04-21 10:42 | disposition home or self-care (01) ==
PROVIDERS: PCP Family Medicine; Referring Provider Physical Medicine & Rehabilitation; Visit Provider Physical Medicine & Rehabilitation
DX: M48.02 Spinal stenosis, cervical region (principal); M50.123 Cervical disc disorder at C6-C7 level with radiculopathy
CPT/HCPCS: 62321; 99152; J2250; J3490

== ENCOUNTER 2022-06-04 13:28 | Outpatient (CLI) | payer OTHER, MEDICAID, SELFPAY ==
[2022-06-04] VITALS (8 sets, daily range): BP systolic 132–141; BP diastolic 72–91; PULSE 82–98; RESP 12–20; TEMP 36.9; O2SAT 97–100
--- NOTE | 2022-06-04 13:30 | DI.RAD.S_ITS ---
PROCEDURE: PAIN C/T INTERLAMINAR INJECT INDICATIONS: SPONDYLOSIS COMPARISON: [facility], , PAIN C/T INTERLAMINAR INJECT, 04/21/2022, 11:08. FINDINGS: Fluoroscopic spot filming was performed to verify placement of spinal needles at the right and left C6-C7 level(s), as labeled on the films. Appropriate location(s) of the needle tip(s) was confirmed by injection of iodinated contrast. IMPRESSION: Intraprocedural fluoroscopy was provided for guidance and anatomical localization. Please see the procedure report for further details. Dictated by: Osvaldo Grover M.D. on 06/04/2022 at 17:28 Approved by: Osvaldo Grover M.D. on 06/04/2022 at 17:29
[2022-06-04] MEDS: MIDAZOLAM 2 MG/2 ML VIAL IV (13:45)
[2022-06-04] MEDS: DEXAMETHASONE 10 MG/ML VIAL 20 MG INJ (13:49)
[2022-06-04] MEDS: IOPAMIDOL 15 ML VIAL 3 ML INJ (13:49)
--- NOTE | 2022-06-04 15:10 | P.PCN_ITS ---
Date/Time/Diagnoses Date of procedure: 06/04/22 Time of procedure: 13:30 Procedure Notes Physician: Kamari Bradford Total Fluoroscopy time (seconds): 15 Total sedation minutes: 9 Procedure in detail & Post-procedure care: C7-T1 Interlaminar Epidural Steroid Injection Indications: Matt is referred by Dr. Hutchins for treatment of cervical radiculopathy with neck and arm pain. Preoperative diagnosis: Right cervical radiculopathy Postoperative diagnosis: Same Focused Examination: Ax3 Mood and affect are normal Vital Signs: VSS ASA: 2 Consent: Following review of allergies and potential side effects/complications, including, but not necessarily limited to, infection, allergic reaction, local tissue breakdown, stroke, temporary or permanent nerve injury, paralysis, and possible , the patient indicated that they understood and agreed to proceed.? An informed consent document was signed by the patient, witnessed by a nurse and placed in the patient's chart.? Additionally, other treatment options including medications and physical therapy were reviewed with the patient. All questions were answered. Site was then marked. Anesthesia: After review of previous anesthetic history and IV conscious sedation, the patient was deemed safe to proceed with today's procedure with IV conscious sedation. IV sedation was accomplished with versed 2mg administered by the RN after physician order. Sedation was titrated to patient comfort during the course of the procedure. Patient remained responsive to all verbal commands. Position: Prone Monitoring: NIBP, Pulse oximetry, 3 lead EKG Needle used: 18 G 3.5? Tuohy Contrast: Isovue 300-M 2 mL Injectate: Dexamethasone 20 mg followed by Normal Saline 1 mL Technique: The skin was prepped with chloraprep and then draped in a sterile fashion. Time out was performed as per protocol. Oxygen applied via NC. Skin and subcutaneous structures of the needle entry site was then infiltrated with 3 mL of lidocaine 1%. Under AP, lateral and contralateral oblique fluoroscopic control, the Tuohy needle was guided into the C7-T1 epidural space. The space was accessed with loss of resistance technique. Omnipaque 240 was then injected and the spread was consistent with the epidural space. There was no evidence for intravascular or intrathecal uptake. After negative aspiration, the above- mentioned injectate was then slowly administered and the needle withdrawn. The patient expressed no unusual discomfort or paresthesias during the injection. Band-Aids applied to injection sites. EBL: less than 1 ml Complications: None Post Procedure: Patient was taken to the recovery and monitored. The patient was provided a Pain Log to continue to record the patient's response to the target- specific procedure prior to the patient's follow-up visit with the referring physician. Patient was stable upon discharge. Detailed post procedure instructions were provided. Patient was asked to call in the event of worsening pain, fever, weakness, numbness or bladder or bowel incontinence.
== END 2022-06-04 14:25 | disposition home or self-care (01) ==
PROVIDERS: PCP Family Medicine; Referring Provider Anesthesiology; Visit Provider Anesthesiology
DX: M50.13 Cervical disc disorder with radiculopathy, cervicothoracic region (principal)
CPT/HCPCS: 62321; J1100; J2250

== ENCOUNTER 2022-06-14 05:01 | Emergency (ER) | payer OTHER, MEDICAID, SELFPAY ==
[2022-06-14] VITALS (20 sets, daily range): BP systolic 100–151; BP diastolic 51–86; PULSE 79–114; RESP 12–20; TEMP 37; O2SAT 92–99; BMI 25.7
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
[2022-06-14] MEDS: SODIUM CHLORIDE 0.9% 1,000 ML 150 ML IV (05:20)
[2022-06-14 05:21] LABS: Add Manual Diff / Slide Review NO; Basophils Absolute Auto 100 /uL (0-100); Basophils Percent Auto 0.9 % (0-2); Eosinophils Absolute Auto 200 /uL (0-450); Eosinophils Percent Auto 2.7 % (2-4); Hematocrit 50.8 % (41-53); Hemoglobin 17.8 g/dL (13.5-17.5); Lymphocytes Absolute Auto 2200 /uL (1100-4500); Lymphocytes Percent Auto 32.8 % (25-40); Mean Corpuscular HGB Conc 34.9 % (30-36); Mean Corpuscular Hemoglobin 33.9 PG (26-34); Monocytes Absolute Auto 500 /uL (0-900); Monocytes Percent Auto 7.3 % (3-14); Neutrophils Absolute Auto 3800 /uL (1500-7000); Neutrophils Percent Auto 56.3 % (50-75); Platelet Count 197 X10^3/uL (150-400); Red Blood Cell Count 5.24 X10^6/uL (4.5-5.9); Red Cell Distribution Width 13.4 % (11.6-14.8); White Blood Cell Count 6.7 X10^3/uL (4.5-11.0)
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
[2022-06-14 05:30] LABS: Creatine Kinase 176 U/L (55-170); Lipase 219 U/L (23-300)
[2022-06-14 05:31] LABS: Lactate (Lactic Acid) 1.7 mmol/L (0.7-2.1)
[2022-06-14 05:33] LABS: Acetaminophen < 10 ug/mL (10-30); Alanine Aminotransferase 29 IU/L (<50); Albumin 4.7 g/dL (3.5-5.0); Albumin Globulin Ratio 1.5 (1.0-2.8); Alkaline Phosphatase 53 U/L (38-126); Aspartate Aminotransferase 38 IU/L (17-59); BUN Creatinine Ratio 14.5 (6-22); Bilirubin Total 0.4 mg/dL (0.2-1.3); Blood Urea Nitrogen 10 mg/dL (9-20); Calcium 8.5 mg/dL (8.4-10.2); Carbon Dioxide 25 mmol/L (22-32); Chloride 107 mmol/L (98-107); Estimated Glomerular Filt Rate > 60 mL/min (>60); Ethanol (ETOH) 248 mg/dL; Globulin 3.2 g/dL (1.7-4.1); Glucose 132 mg/dL (70-100); HEMOLYSIS 21 (0-50); Potassium 4.3 mmol/L (3.4-5.1); Salicylate < 1.0 mg/dL (<20); Sodium 147 mmol/L (137-145); Total Protein 7.9 g/dL (6.3-8.2)
[2022-06-14 05:43] LABS: Troponin I < 0.012 ng/mL (0.01-0.034)
[2022-06-14 05:45] LABS: CKMB % Relative Index 0.5 % (1.5-5.0); Creatine Kinase MB 0.96 ng/mL (<2.37)
[2022-06-14] MEDS: LORazepam 2 MG/ML INJ 1 MG IV (06:11)
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
[2022-06-14 09:15] LABS: Acetaminophen < 10 ug/mL (10-30)
--- NOTE | 2022-06-14 11:21 | PC.NURSE ---
Pt removed blood pressure cuff, aggressive and not cooperating with staff to allow reapplication. Pt remains on cardiac leads and pulse oximeter. Pt has blanket over head, moving independently, breathing assessed to be even and unlabored.
--- NOTE | 2022-06-14 12:41 | PC.NURSE ---
Pt laying on right side with eyes closed, breathing even and unlabored.
--- NOTE | 2022-06-14 13:48 | PC.NURSE ---
Observed pt getting out of bed and removing telemetry, spoke to pt and assessed to be alert and oriented 4/4. Pt speaking in clear and coherent sentences, ambulatory with a steady gait around the room. Pt began dressing, spoke to pt about plan to have Dr. Ordaz speak to him and pt agrees.
--- NOTE | 2022-06-14 14:01 | PC.NURSE ---
Pt states he does not have his phone, thinks he left it back at his house. Pt provided unit phone to make a call.
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
--- NOTE | 2022-06-14 14:57 | PC.NURSE ---
Pt denies suicidal ideation, suicide plan, or homicidal ideation. Pt contracts to safety. States plan is to walk to his girlfriend Cathi's house upon discharge. Pt spoke to Cathi and social services director Mela spoke to Cathi, she is aware pt is coming to her house upon discharge and agrees to plan. Dr. Ordaz present during discharge education, pt denies further questions. Ambulatory with steady gait at time of discharge.
== END 2022-06-14 14:57 | disposition home or self-care (01) ==
PROVIDERS: Emergency Medicine; Emergency Provider Emergency Medicine; PCP Family Medicine
DX: T50.912A Poisoning by multiple unspecified drugs, medicaments and biological substances, intentional self-harm, initial encounter (principal); F10.129 Alcohol abuse with intoxication, unspecified; Y90.8 Blood alcohol level of 240 mg/100 ml or more; V89.2XXA Person injured in unspecified motor-vehicle accident, traffic, initial encounter
CPT/HCPCS: 36415; 70450; 71045; 80053; 80320; 80329; 82550; 82553; 83605; 83690; 84484; 85025; 93005; 93010; 96361; 96374; 99285; G0480; J2060